=== PATIENT | female | born 1935 | race Hispanic/Latino ===

== ENCOUNTER 2019-06-09 07:35 | Observation (INO) | payer OTHER ==
[2019-06-09] MEDS ORDERED: ONDANSETRON 4 MG/2 ML VIAL ONE (07:55)
[2019-06-09] MEDS ORDERED: NA CHLORIDE 0.9% 1,000 ML ONE (07:55)
[2019-06-09] MEDS ORDERED: MORPHINE 4 MG/ML SYR ONE ×2 (07:55→09:02)
[2019-06-09 08:21] LABS: Absolute Lymphocytes (CBC) 1.3 K/uL (0.7-4.9); Basophils % 0.4 % (0-1.3); Hematocrit 37.7 % (36.0-45.0); Lymphocytes % 7.2 % (15.3-44.8); MPV 9.3 fL (7.6-11.3); Protime INR 1.07; RBC Red Blood Cell Count 4.49 M/uL (3.86-4.86)
--- NOTE | 2019-06-09 08:29 | RAD REPORT ---
EXAM DESCRIPTION: CT - CTHCSPWOC - 06/09/2019 8:17 am CLINICAL HISTORY: Trauma, head and neck injury. PAIN COMPARISON: Head C Spine Mpr Wo Con dated 05/03/2016 TECHNIQUE: Axial 5 mm thick images of the head were obtained. Axial 2 mm thick images of the cervical spine were obtained with sagittal and coronal reconstruction images generated and reviewed. All CT scans are performed using dose optimization technique as appropriate and may include automated exposure control or mA/KV adjustment according to patient size. FINDINGS: CT HEAD WITHOUT CONTRAST: No acute hemorrhage, hydrocephalus or extra-axial collection is identified.Advanced generalized brain atrophy is present with moderate periventricular and deep white matter chronic microvascular ischemi c changes.No areas of brain edema or midline shift. Vertebral artery on the left is calcified. The paranasal sinuses and mastoids are clear.The calvarium is intact. CT CERVICAL SPINE WITHOUT CONTRAST: No fracture or subluxation. 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 Moderate midcer vical degenerative changes with prominent posterior osteophyte at C4-5No prevertebral soft tissues sw elling is identified. IMPRESSION: No acute intracranial or cervical spine findings.
[2019-06-09 08:35] LABS: ALT/SGPT 16 U/L (12-78); AST/SGOT 13 U/L (15-37); Albumin 3.9 g/dL (3.4-5.0); Alkaline Phosphatase 85 U/L (45-117); BUN Blood Urea Nitrogen 5 mg/dL (7-18); Bicarbonate 30 mmol/L (21-32); Bilirubin Direct 0.3 mg/dL (0-0.2); Bilirubin Total 0.7 mg/dL (0.2-1.0); Glucose Level 141 mg/dL (74-106); Magnesium 1.6 mg/dL (1.8-2.4); NT PRO-BNP 345 pg/mL (<450); Potassium 3.8 mmol/L (3.5-5.1); Protein, Total 7.6 g/dL (6.4-8.2); Sodium Level 133 mmol/L (136-145); Troponin (Emerg Dept Use Only) 0.02 ng/mL (0.0-0.045)
--- NOTE | 2019-06-09 09:10 | RAD REPORT ---
EXAM DESCRIPTION: RAD - Chest Single View - 06/09/2019 8:28 am CLINICAL HISTORY: BLUNT CHEST TRAUMA Chest pain. COMPARISON: Chest Single View dated 12/25/2015 FINDINGS: Portable technique limits examination quality. The lungs are grossly clear. The heart is mildly enlarged in size. Fracture the proximal right dana l neck is seen. IMPRESSION: No acute intrathoracic process suspected.
--- NOTE | 2019-06-09 09:11 | RAD REPORT ---
EXAM DESCRIPTION: RAD - Humerus Right - 06/09/2019 8:30 am CLINICAL HISTORY: PAIN Trauma, pain COMPARISON: No comparisons FINDINGS: Fracture involves the proximal right humerus with mild displacement. No dislocation eviden t.
[2019-06-09 09:16] LABS: Blood Morphology Comment NOT SEEN (NOT SEEN); Platelet Estimate ADEQ; Urine White Blood Cell Casts OK
--- NOTE | 2019-06-09 10:07 | ER ---
Nurse's Notes [facility] Name: Shankar Sandoval Age: 83 yrs Sex: Female : 1935 Arrival Date: 06/09/2019 Time: 07:46 Bed 4 Private MD: Diagnosis: 2-part displaced fracture of surgical neck of right humerus;Syncope and collapse;Tachycardia, unspecified Presentation: 06/09 07:47 Presenting complaint: EMS states: Pt fell about 0100 this morning, c/o right shoulder jl7 pain, pt did hit her head, denies LOC, does not take blood thinners, bruising noted to right upper arm and bridge of nose. Care prior to arrival: None. Mechanism of Injury: Fall. Trauma event details: Injury occurred in the [facility]. 07:47 Acuity: [place] 3 jl7 07:47 Method Of Arrival: EMS: [facility] 7 08:00 Transition of care: patient was received from another setting of care (long-term care [facility]), [place]. Onset of symptoms was June 09, 2019 at 01:00. Risk Assessment: Do you want to hurt yourself or someone else? Patient reports no desire to harm self or others. Initial Sepsis Screen: Does the patient meet any 2 criteria? HR > 90 bpm. Does the patient have a suspected source of infection? No. Patient's initial sepsis screen is negative. Trauma Activation: Not Applicable Physician: ED Physician; Name: ; Notified At: ; Arrived At: Physician: General Surgeon; Name: ; Notified At: ; Arrived At: Physician: Radiology; Name: ; Notified At: ; Arrived At: Physician: Respiratory; Name: ; Notified At: ; Arrived At: Physician: Lab; Name: ; Notified At: ; Arrived At: Historical: - Allergies: 07:52 No Known Allergies; jl7 - Home Meds: 12:51 buspirone 10 mg Oral tab 2 tabs 3 times per day [Active]; duloxetine 30 mg oral cpDR 1 jl7 cap once daily [Active]; Depakote Sprinkles 125 mg Oral cpSP 2 caps 2 times per day [Active]; Levemir 100 unit/mL subcutaneous soln 18 units in the morning [Active]; levothyroxine 50 mcg oral tab 1 tab once daily [Active]; Lipitor 20 mg Oral tab 1 tab once daily [Active]; lisinopril 10 mg Oral tab 1 tab once daily [Active]; metformin 500 mg Oral Tb24 1 tab once daily [Active]; Namenda 10 mg oral tab 1 tab 2 times per day [Active]; Novolog 100 unit/mL Sub-Q soln twice a day [Active]; omeprazole 20 mg Oral cpDR 1 cap once daily [Active]; pioglitazone 15 mg oral tab 1 tab once daily [Active]; trazodone 50 mg Oral tab [Active]; Zyrtec 10 mg Oral tab 1 tab once daily [Active]; - PMHx: 12:51 allergies; Alzheimers; Anxiety; Diabetes - IDDM; Hypertension; Hypothyroidism; jl7 osteoarthritis; Anemia; Hyperlipidemia; Depression; insomnia; GERD; - Immunization history: Last tetanus immunization: unknown. - Social history:: Patient/guardian denies using alcohol, street drugs, The patient lives with family, Smoking status: unknown. - Family history:: not pertinent. - Ebola Screening: : No symptoms or risks identified at this time. Screenin:00 Abuse screen: Denies threats or abuse. Denies injuries from another. Nutritional jl7 screening: No deficits noted. Tuberculosis screening: No symptoms or risk factors identified. Fall Risk Fall in past 12 months (25 points). Secondary diagnosis (15 points) Alzheimer's, IV access (20 points). Ambulatory Aid- None/Bed Rest/Nurse Assist (0 pts). Gait- Weak (10 pts.). Mental Status- Overestimates/Forgets Limitations (15 pts.). Total Reina Fall Scale indicates High Risk Score (45 or more points). Fall prevention measures have been instituted. Side Rails Up X 2 Placed Close to Nursing Station Frequent Obs/Assessments Occuring As available patient and family educated on Fall Prevention Program and Strategies. Assessment: 08:00 General: Appears in no apparent distress. uncomfortable, Behavior is calm, cooperative, jl7 crying. Pain: Complains of pain in right arm Unable to use pain scale. Does not appear to understand pain scale. FLACC scale score is 9 out of 10. Neuro: Level of Consciousness is awake, alert, obeys commands. Cardiovascular: Heart tones present Patient's skin is warm and dry. Respiratory: Airway is patent Respiratory effort is even, unlabored, Respiratory pattern is regular, symmetrical, Breath sounds are clear bilaterally. GI: No signs and/or symptoms were reported involving the gastrointestinal system. : No signs and/or symptoms were reported regarding the genitourinary system. EENT: No signs and/or symptoms were reported regarding the EENT system. Derm: Skin is pink, warm \\T\\ dry. Musculoskeletal: Range of motion: limited in right shoulder. Injury Description: Bruise sustained to bridge of nose, left eye, right bicep and right knee is purple, was sustained 4-6 hours ago. 09:30 Reassessment: Pt refused medication at this time. Reports her arms doesn't hurt that jl7 bad right now. 10:15 Reassessment: Pt appears agitated, removed sling, potline monitor, pulse ox, and BP jl7 cuff, States "I want to go home." Explained to pt that we need to monitor her due to her HR and not knowing how or why she fell. Pt does not understand and continually attempting to get out of bed and leave. ERD notified, see [facility] for orders. 11:00 Reassessment: Patient appears in no apparent distress at this time. Pt laying in bed jl7 with eyes closed, respirations even and unlabored, VSS, no signs of distress noted at this time. 12:00 Reassessment: Patient appears in no apparent distress at this time. No changes from jl7 previously documented assessment. 13:00 Reassessment: Dr. Corrales at bedside discussing plan of care. jl7 13:15 Reassessment: Pt's niece at bedside, pt agrees to having the sling on at this time. jl7 Sling replaced on right arm at this time. 14:15 Reassessment: Patient appears in no apparent distress at this time. No changes from jl7 previously documented assessment. Patient and/or family updated on plan of care and expected duration. Pain level reassessed. 14:40 Reassessment: Attempted to call report, Nurse unavailable. jl7 15:04 Reassessment: Attempted to call report, nurse unavailable. jl7 Vital Signs: 07:50 BP 112 / 99; Pulse 110; Resp 16 S; Temp 98.8(O); Pulse Ox 100% on R/A; Pain 10/10; jl7 08:30 BP 138 / 83; Pulse 109; Resp 14 S; Pulse Ox 100% on R/A; jl7 09:15 BP 158 / 77; Pulse 102; Resp 16; Pulse Ox 100% on R/A; jl7 13:47 BP 156 / 80; Pulse 111; Resp 15 S; Pulse Ox 100% on R/A; jl7 14:43 BP 143 / 80; Pulse 115; Resp 16 S; Pulse Ox 100% on R/A; jl7 ED Course: 07:46 Patient arrived in ED. jl7 07:46 Noemí Graham MD is Attending Physician. ma2 07:50 Triage completed. jl7 07:58 Radiology exam delayed due to IV insertion attempt and/or patient not having jg6 appropriate IV at this time. 08:00 Patient has correct armband on for positive identification. Placed in gown. Bed in low jl7 position. Call light in reach. Side rails up X 1. threat monitoring analyst on. Pulse ox on. NIBP on. Warm blanket given. 08:00 Arm band placed on right wrist. jl7 08:09 Lb Ferrell RN is Primary Nurse. jl7 08:10 Patient maintains SpO2 saturation greater than 95% on room air. Thermoregulation: warm jl7 blanket given to patient. 08:11 Initial lab(s) drawn, by nd, sent to lab. Inserted saline lock: 22 gauge in left jl7 antecubital area, using aseptic technique. Blood collected. 08:19 CT Head C Spine In Process Unspecified. EDMS 08:27 Chest Single View XRAY In Process Unspecified. EDMS 08:27 Humerus Right XRAY In Process Unspecified. EDMS 08:30 Straight cath inserted, using sterile technique, 16 Fr. Specimen obtained. Returned jl7 clear yellow urine. Patient tolerated well. Cath inserted by ISATU Medina with students. 08:30 Urine collected: straight cath specimen, clear, EKG done, by ED staff, reviewed by jl7 Noemí Graham MD. 10:05 Connor Powers is Hospitalizing Provider. ma2 12:52 No provider procedures requiring assistance completed. Patient admitted, IV remains in jl7 place. intact, No redness/swelling at site. Administered Medications: 08:05 Drug: Zofran 4 mg Route: IVP; Site: left antecubital; jl7 08:30 Follow up: Response: No adverse reaction jl7 08:05 Drug: NS 0.9% 1000 ml Route: IV; Rate: 1 bolus; Site: left antecubital; jl7 10:13 Follow up: Response: No adverse reaction; IV Status: Completed infusion; IV Intake: jl7 1000ml 08:07 Drug: morphine 4 mg Route: IVP; Site: left antecubital; jl7 08:30 Follow up: Response: No adverse reaction; Pain is decreased jl7 10:13 Not Given (Duplicate Order): morphine 4 mg IVP once; RASS on ADMIN: Combtv4, Very jl7 Agttd3, Agttd2, Rstlss1, AlertClm0, Drwsy-1, Lt Sdtn-2, Mod Sdtn-3, Dp Sdtn-4, UnArsble-5 10:13 Not Given (Patient Refused): morphine 4 mg IVP once; RASS on ADMIN: Combtv4, Very jl7 Agttd3, Agttd2, Rstlss1, AlertClm0, Drwsy-1, Lt Sdtn-2, Mod Sdtn-3, Dp Sdtn-4, UnArsble-5 10:20 Drug: Ativan 1 mg Route: IVP; Site: left antecubital; jl7 10:25 Follow up: Response: No adverse reaction; Marked relief of symptoms jl7 14:52 CANCELLED (New order): Ativan 2 mg IVP once jl7 Intake: 10:13 IV: 1000ml; Total: 1000ml. jl7 Outcome: 10:07 Decision to Hospitalize by Provider. braulio 15:17 Admitted to Med/surg accompanied by tech, via stretcher, room 203, with chart, Report jl7 called to ISATU Gill 15:17 Condition: stable 15:17 Discharge instructions given to patient, family, Instructed on the need for admit, Demonstrated understanding of instructions. 16:02 Patient left the ED. Signatures: Dispatcher [employer] EDMS Yoselin Hernandez RN RN ss Leal, Jahala, RN RN [email or web address] Noemí Graham MD MD ma2 Garcia, Jessica jg6 Corrections: (The following items were deleted from the chart) 14:42 13:15 Reassessment: Pt's niece at bedside, agrees to having the sling on at this time. jl7 jl7 14:45 10:31 Ativan 2 mg IVP in left antecubital jl7 jl7 14:52 11:00 Response: No adverse reaction; Marked relief of symptoms jl7 jl7 14:52 10:31 Ativan 2 mg IVP in left antecubital jl7 jl7
--- NOTE | 2019-06-09 10:07 | EDPHYS ---
Physician Documentation [facility] Name: Shankar Sandoval Age: 83 yrs Sex: Female : 1935 Arrival Date: 06/09/2019 Time: 07:46 Bed 4 Private MD: ED Physician Noemí Graham HPI: 06/09 09:04 This 83 yrs old Female presents to ER via EMS with complaints of Shoulder ma2 Injury. 09:04 The patient or guardian complains of a crush injury, decreased range of motion. Onset: ma2 The symptoms/episode began/occurred suddenly, 1 hour(s) ago. 09:05 Severity of symptoms: At their worst the symptoms were severe, in the emergency ma2 department the symptoms are unchanged. The patient has not experienced similar symptoms in the past. Historical: - Allergies: 07:52 No Known Allergies; jl7 - Home Meds: 12:51 buspirone 10 mg Oral tab 2 tabs 3 times per day [Active]; duloxetine 30 mg oral cpDR 1 jl7 cap once daily [Active]; Depakote Sprinkles 125 mg Oral cpSP 2 caps 2 times per day [Active]; Levemir 100 unit/mL subcutaneous soln 18 units in the morning [Active]; levothyroxine 50 mcg oral tab 1 tab once daily [Active]; Lipitor 20 mg Oral tab 1 tab once daily [Active]; lisinopril 10 mg Oral tab 1 tab once daily [Active]; metformin 500 mg Oral Tb24 1 tab once daily [Active]; Namenda 10 mg oral tab 1 tab 2 times per day [Active]; Novolog 100 unit/mL Sub-Q soln twice a day [Active]; omeprazole 20 mg Oral cpDR 1 cap once daily [Active]; pioglitazone 15 mg oral tab 1 tab once daily [Active]; trazodone 50 mg Oral tab [Active]; Zyrtec 10 mg Oral tab 1 tab once daily [Active]; - PMHx: 12:51 allergies; Alzheimers; Anxiety; Diabetes - IDDM; Hypertension; Hypothyroidism; jl7 osteoarthritis; Anemia; Hyperlipidemia; Depression; insomnia; GERD; - Immunization history: Last tetanus immunization: unknown. - Social history:: Patient/guardian denies using alcohol, street drugs, The patient lives with family, Smoking status: unknown. - Family history:: not pertinent. - Ebola Screening: : No symptoms or risks identified at this time. ROS: 09:05 Constitutional: Negative for fever, chills, and weight loss. ma2 09:05 All other systems are negative. Exam: 09:05 Constitutional: This is a well developed, well nourished patient who is awake, alert, ma2 and in no acute distress. 09:05 ENT: Nares patent. No nasal discharge, no septal abnormalities noted. Tympanic membranes are normal and external auditory canals are clear. Oropharynx with no redness, swelling, or masses, exudates, or evidence of obstruction, uvula midline. Mucous membranes moist. Neck: Trachea midline, no thyromegaly or masses palpated, and no cervical lymphadenopathy. Supple, full range of motion without nuchal rigidity, or vertebral point tenderness. No Meningismus. Chest/axilla: Normal chest wall appearance and motion. Nontender with no deformity. No lesions are appreciated. Cardiovascular: Regular rate and rhythm with a normal S1 and S2. No gallops, murmurs, or rubs. Normal PMI, no JVD. No pulse deficits. Respiratory: Lungs have equal breath sounds bilaterally, clear to auscultation and percussion. No rales, rhonchi or wheezes noted. No increased work of breathing, no retractions or nasal flaring. Abdomen/GI: Soft, non-tender, with normal bowel sounds. No distension or tympany. No guarding or rebound. No evidence of tenderness throughout. Skin: Warm, dry with normal turgor. Normal color with no rashes, no lesions, and no evidence of cellulitis. MS/ Extremity: + ttp and limited rom on right shoulder, no dislocation on exam, otherwise Pulses equal, no cyanosis. Neurovascular intact. Full, normal range of motion. Neuro: Awake and alert, GCS 15, oriented to person, place, time, and situation. Cranial nerves II-XII grossly intact. Motor strength 5/5 in all extremities. Sensory grossly intact. Cerebellar exam normal. Normal gait. 09:05 Head/face: Exam is negative for quinonez signs, erythema, laceration(s), swelling, Noted is contusion. Vital Signs: 07:50 BP 112 / 99; Pulse 110; Resp 16 S; Temp 98.8(O); Pulse Ox 100% on R/A; Pain 10/10; jl7 08:30 BP 138 / 83; Pulse 109; Resp 14 S; Pulse Ox 100% on R/A; jl7 09:15 BP 158 / 77; Pulse 102; Resp 16; Pulse Ox 100% on R/A; jl7 13:47 BP 156 / 80; Pulse 111; Resp 15 S; Pulse Ox 100% on R/A; jl7 14:43 BP 143 / 80; Pulse 115; Resp 16 S; Pulse Ox 100% on R/A; jl7 Procedures: 09:05 Splinting: Splint applied to right arm using sling, swath and sling. applied by myself. ma2 post reduction film - Examined by me, post splint application: neurovascular intact, 2+ distal pulses palpable, brisk capillary refill noted, Patient tolerated well. MDM: 07:46 Patient medically screened. ma2 09:05 Differential diagnosis: Posterior dislocation without fracture, humeral head fracture, ma2 glenoid fracture, DJD, tendonitis. Data reviewed: vital signs, nurses notes. Counseling: I had a detailed discussion with the patient and/or guardian regarding: the historical points, exam findings, and any diagnostic results supporting the discharge/admit diagnosis, the presence of at least one elevated blood pressure reading (>120/80) during this emergency department visit, the need for further work-up and treatment in the hospital, will admit d/t intractable pain in the setting of closed humeral head frx, neurovascular intact.. i called dr. Corrales office and discussed the case to his outpatient physical therapist assistant.. he will see her as an inpatient.. . Medical screen evaluation completed. EMTALA emergency medical condition absent. 06/09 07:49 Order name: Basic Metabolic Panel; Complete Time: 08:40 ga2 06/09 07:49 Order name: CBC with Diff; Complete Time: 10:01 ga2 06/09 07:49 Order name: LFT's; Complete Time: 08:40 ga2 06/09 07:49 Order name: Magnesium; Complete Time: 08:40 ga2 06/09 07:49 Order name: NT PRO-BNP; Complete Time: 08:40 ga2 06/09 07:49 Order name: PT-INR; Complete Time: 08:40 ga2 06/09 07:49 Order name: CT Head C Spine; Complete Time: 08:40 ma2 06/09 07:49 Order name: Chest Single View XRAY; Complete Time: 09:16 ma2 06/09 07:49 Order name: Humerus Right XRAY; Complete Time: 09:16 ma2 06/09 07:49 Order name: Troponin (emerg Dept Use Only); Complete Time: 08:40 ma2 06/09 09:16 Order name: CBC Smear Scan; Complete Time: 10:01 EDMS 06/09 09:26 Order name: Urine Dipstick--Ancillary (enter results) bd 06/09 07:49 Order name: EKG; Complete Time: 07:50 ma2 06/09 07:49 Order name: EKG - Nurse/Tech; Complete Time: 08:53 ma2 06/09 07:49 Order name: IV Saline Lock; Complete Time: 08:10 ma2 06/09 07:49 Order name: Labs collected and sent; Complete Time: 08:10 ma2 06/09 07:49 Order name: O2 Per Protocol; Complete Time: 08:09 ma2 06/09 07:49 Order name: O2 Sat Monitoring; Complete Time: 08:09 ma2 06/09 07:49 Order name: Urine Dipstick-Ancillary (obtain specimen); Complete Time: 08:54 ma2 06/09 08:46 Order name: Sling: sling + swath; Complete Time: 10:13 ma2 Administered Medications: 08:05 Drug: Zofran 4 mg Route: IVP; Site: left antecubital; jl7 08:30 Follow up: Response: No adverse reaction 7 08:05 Drug: NS 0.9% 1000 ml Route: IV; Rate: 1 bolus; Site: left antecubital; jl7 10:13 Follow up: Response: No adverse reaction; IV Status: Completed infusion; IV Intake: jl7 1000ml 08:07 Drug: morphine 4 mg Route: IVP; Site: left antecubital; jl7 08:30 Follow up: Response: No adverse reaction; Pain is decreased jl7 10:13 Not Given (Duplicate Order): morphine 4 mg IVP once; RASS on ADMIN: Combtv4, Very jl7 Agttd3, Agttd2, Rstlss1, AlertClm0, Drwsy-1, Lt Sdtn-2, Mod Sdtn-3, Dp Sdtn-4, UnArsble-5 10:13 Not Given (Patient Refused): morphine 4 mg IVP once; RASS on ADMIN: Combtv4, Very jl7 Agttd3, Agttd2, Rstlss1, AlertClm0, Drwsy-1, Lt Sdtn-2, Mod Sdtn-3, Dp Sdtn-4, UnArsble-5 10:20 Drug: Ativan 1 mg Route: IVP; Site: left antecubital; 7 10:25 Follow up: Response: No adverse reaction; Marked relief of symptoms jl7 14:52 CANCELLED (New order): Ativan 2 mg IVP once jl7 Disposition: 06/09/19 10:07 Hospitalization ordered by Connor Powers for Observation. Preliminary diagnosis are 2-part displaced fracture of surgical neck of right humerus, Syncope and collapse, Tachycardia, unspecified. - Bed requested for Telemetry/MedSurg (observation). - Status is Observation. ss - Condition is Stable. - Problem is new. - Symptoms are unchanged. UTI on Admission? No Signatures: Dispatcher [employer] EDMS Nayeli Alberto RN RN Yoselin Altamirano RN RN ss Leal, Jahala, RN RN jl7 Alzahri, Mohammad, MD MD ma2 Corrections: (The following items were deleted from the chart) 13:19 10:07 Hospitalization Ordered by Connor Powers for Observation. Preliminary diagnosis ma2 is 2-part displaced fracture of surgical neck of right humerus. Bed requested for Telemetry/MedSurg (observation). Status is Observation. Condition is Stable. Problem is new. Symptoms are unchanged. UTI on Admission? No. ma2 14:37 13:19 06/09/2019 10:07 Hospitalization Ordered by Connor Powers for Observation. dw Preliminary diagnosis is 2-part displaced fracture of surgical neck of right humerus; Syncope and collapse; Tachycardia, unspecified. Bed requested for Telemetry/MedSurg (observation). Status is Observation. Condition is Stable. Problem is new. Symptoms are unchanged. UTI on Admission? No. ma2 14:52 10:21 Ativan 2 mg IVP once ordered. ma2 jl7 14:52 10:31 Ativan 2 mg IVP once given. jl7 jl7 14:52 14:45 Ativan 2 mg IVP once given. jl7 jl7 14:52 14:52 Ativan 2 mg IVP once ordered. jl7 jl7 16:02 14:37 06/09/2019 10:07 Hospitalization Ordered by Connor Powers for Observation. ss Preliminary diagnosis is 2-part displaced fracture of surgical neck of right humerus; Syncope and collapse; Tachycardia, unspecified. Bed requested for Telemetry/MedSurg (observation). Status is Observation. Condition is Stable. Problem is new. Symptoms are unchanged. UTI on Admission? No. dw
[2019-06-09] MEDS ORDERED: LORazepam 2 MG/ML VIAL ONE (10:23)
[2019-06-09 10:31] LABS: Urine Blood NEGATIVE (NEG); Urine Glucose NEGATIVE (NEG); Urine Protein NEGATIVE (NEG); Urine Specific Gravity 1.015 (1.005-1.030); Urine pH 8.5 (5.0-7.0)
--- NOTE | 2019-06-09 11:06 | EKG ---
Test Date: 2019-06-09 Test Time: 09:17:53 Product Safety Consultant: YVETTE MEASUREMENT RESULTS: Intervals: Rate: 98 MA: 178 QRSD: 68 QT: 370 QTc: 472 [place]: P: 41 MA: 178 QRS: 1 T: 9 INTERPRETIVE STATEMENTS: Normal sinus rhythm Normal ECG Compared to ECG 12/26/2015 07:00:07 No significant changes Electronically Signed On 06-09-19 11:05:50 CDT by Kin Pearce
--- NOTE | 2019-06-09 14:04 | P.HP ---
Certification for Inpatient Patient admitted to: Inpatient With expected LOS: >2 Midnights Patient will require the following post-hospital care: Longterm Practitioner: I am a practitioner with admitting privileges, knowledge of patient current condition, hospital course, and medical plan of care. Services: Services provided to patient in accordance with Admission requirements found in Title 42 Section 412.3 of the Code of Federal Regulations Patient History Date of Service: 06/09/19 Reason for admission: Fall History of Present Illness: 83-year-old pen[facility]iary resident who was [facility] the penitentiary to the emergency department because she fell. Mechanism of for unknown. Daughter by her bedside also does not know the mechanism of fall. Patient has dementia, appeared confused and could not provide any history. X-ray done in the ED report right humeral neck fracture. Also noted patient has leukocytosis and hyponatremia. Urinalysis does not suggest the presence of UTI. Orthopedic surgery informed and hospitalist service called to admit the patient for further management. Allergies No Known Allergies Allergy (Verified 12/25/15 09:19) Home medications list reviewed: Yes Home Medications: Dextromethorphan HBr/Quinidine [Nuedexta 20-10 mg Capsule] 1 tab PO BID Donepezil HCl 10 mg PO BID 12/25/15 LORazepam [Lorazepam] 0.5 mg PO BEDTIME 12/25/15 Levothyroxine Sodium [Unithroid] 25 mcg PO DAILY 12/25/15 Lisinopril 10 mg PO DAILY 12/25/15 Memantine HCl [Namenda Xr] 28 mg PO DAILY 12/25/15 Omeprazole 40 mg PO DAILY 12/25/15 Benzonatate [Tessalon Perle] 100 mg PO TID #20 cap 12/26/15 Cetirizine HCl [Zyrtec] 10 mg PO DAILYPRN PRN #30 tablet 12/26/15 - Past Medical/Surgical History -: alzheimers -: anxiety Past Surgical History: Unable to obtain - Family History Mother -: Diabetes - Social History Alcohol use: No CD- Drugs: No Caffeine use: Yes Review of Systems is unable to be obtained (Due to advanced dementia.) Physical Examination - Physical Exam General: In no apparent distress, Cooperative, Demented HEENT: Normocephalic, PERRLA, Mucous membr. moist/pink, Other Neck: Supple, JVD not distended, No Thyromegaly Respiratory: Clear to auscultation bilaterally, Normal air movement Cardiovascular: No edema, Normal pulses, Regular rate/rhythm, No murmurs Capillary refill: <2 Seconds Gastrointestinal: Normal bowel sounds, Soft and benign, Non-distended, No tenderness Musculoskeletal: No clubbing, No swelling, No erythema, Other (Bruise and sweling- right shoulder) Neurological: Cranial nerves 3-12 intact, Normal affect, Other (Power bilateral lower extremities and left upper extremity are normal. Cannot assess power in the right upper extremity.) Lymphatics: No axilla or inguinal lymphadenopathy - Studies Laboratory Data (last 24 hrs) 06/09/19 08:08: PT 12.6 H, INR 1.07 06/09/19 08:08: WBC 17.6 H, Hgb 12.9, Hct 37.7, Plt Count 247 06/09/19 08:08: Sodium 133 L, Potassium 3.8, BUN 5 L, Creatinine 0.59, Glucose 141 H, Magnesium 1.6 L, Total Bilirubin 0.7, AST 13 L, ALT 16, Alkaline Phosphatase 85 Imagings Data: Right humeral x-ray: Fracture involves the proximal right humerus with mild displacement. No dislocation evident. CT head and cervical spine: No acute intracranial or cervical spine findings. Assessment and Plan - Problems (Diagnosis) (1) Fall Current Visit: Yes Status: Acute (2) Humeral fracture Current Visit: Yes Status: Acute (3) Leukocytosis Current Visit: Yes Status: Acute (4) Hyponatremia Current Visit: Yes Status: Acute - Plan Admit to [facility] IV hydration normal saline to correct hyponatremia. Leukocytosis could be reactive to stress. Urine culture Orthopedic consult Pain management. PT and OT Discharge Plan: Senior Living - Advance Directives Does patient have a Living Will: No Does patient have a Durable POA for Healthcare: No
[2019-06-09] MEDS ORDERED: MAGNESIUM HYDROXIDE 8% 30 ML PO PRN (16:32)
[2019-06-09] MEDS ORDERED: ONDANSETRON 4 MG/2 ML VIAL IV PRN (16:32)
[2019-06-09] MEDS: NA CHLORIDE 0.9% 1,000 ML IV SCH (16:56)
[2019-06-09 17:03] VITALS: BMI 4218.0
[2019-06-09] MEDS ORDERED: GLUCAGON 1 MG/VIAL IM PRN (17:19)
[2019-06-09] MEDS ORDERED: D50W 25 GM/50 ML SYRINGE IV PRN (17:19)
[2019-06-09] MEDS ORDERED: POTASSIUM 25 MEQ EFFERV TAB PO ONE (17:41)
[2019-06-09] MEDS ORDERED: MAGNESIUM SULFATE 1 gm IVPB 1 GM/100 ML BAG IV ONE (18:00)
[2019-06-09 18:01] LABS: Urine Appearance CLEAR; Urine Bilirubin NEGATIVE (NEG); Urine Blood NEGATIVE (NEG); Urine Color YELLOW; Urine Glucose NEGATIVE (NEG); Urine Protein NEGATIVE (NEG); Urine Urobilinogen 0.2 mg/dL (0.2-1.0); Urine pH 6.5 (5.0-7.0)
[2019-06-09 18:10] LABS: Urine Microscopic Reflex ORDER UMIC
[2019-06-09 18:15] LABS: Urine Amorphous Sediment 1+ /HPF (NONE SEEN); Urine Bacteria 20-50 /HPF (<20); Urine Culture Reflex Order REFLEXED; Urine RBC <5 /HPF (NONE SEEN)
[2019-06-09 18:20] LABS: Protime INR 1.1
[2019-06-09] MEDS: HEPARIN 5000 UNIT/ML 1 ML VIAL SQ SCH (20:51)
[2019-06-09] MEDS: INSULIN -REGULAR HUMAN 50 UNIT/0.5 ML ML SQ SCH (21:00)
[2019-06-10] MEDS: ACETAMINOPHEN 500 MG TAB PO PRN ×2 (02:30→10:15)
[2019-06-10] MEDS: MORPHINE 2 MG/ML SYR IV PRN ×2 (02:48→13:19)
--- NOTE | 2019-06-10 03:46 | CON ---
Date of Consultation: 06/09/2019 This is my first time I am seeing this patient to my knowledge. She apparently fell early this brandie lucas, sustained an injury to her right upper extremity. She has been seen and examined in the emergenc y department where she was found to have some bruising on the face, also with complaints of pain in h er right arm. X-rays were taken of the right arm, which demonstrate a slightly comminuted proximal h umerus fracture without significant displacement. All of her long bones and joints are palpated with out pain or crepitation with the exception of her right shoulder, which appears to be swollen and arnol nful to medial manipulation. Assessment: Patient is an 83-year-old female with dementia now with proximal humerus fracture who ba sically cannot give any history or has no specific complaints other than pain with palpation. Her fa estuardo was there and states that she is not even aware that she fell. We will treat this in a simple sling. The sling is to be used for 3 weeks to help with pain control. Otherwise, pain alleviating medications can be used as deemed reasonable or necessary. Really woul d not change her status or recommendations until 3 weeks, at which time could institute common exerci ses if she was able to do this, otherwise I expect that her humerus fracture will heal in 6 weeks. S he will have some decreased function related to her right upper extremity, but this would not be impr eliud by any invasive intervention. /SEGUNDO Voice ID: [id number] Report ID: [id number]
[2019-06-10] MEDS: NA CHLORIDE 0.9% 1,000 ML IV SCH ×2 (04:22→12:32)
[2019-06-10 05:54] LABS: Absolute Lymphocytes (CBC) 1.6 K/uL (0.7-4.9); Basophils % 0.2 % (0-1.3); Hematocrit 31.7 % (36.0-45.0); MPV 9.5 fL (7.6-11.3); RBC Red Blood Cell Count 3.73 M/uL (3.86-4.86)
[2019-06-10 06:09] LABS: BUN Blood Urea Nitrogen 5 mg/dL (7-18); Bicarbonate 33 mmol/L (21-32); Glucose Level 120 mg/dL (74-106); Potassium 4.2 mmol/L (3.5-5.1); Sodium Level 136 mmol/L (136-145)
[2019-06-10] MEDS: INSULIN -REGULAR HUMAN 50 UNIT/0.5 ML ML SQ SCH ×2 (07:30→11:30)
[2019-06-10] MEDS: HEPARIN 5000 UNIT/ML 1 ML VIAL SQ SCH (10:11)
[2019-06-10 10:19] VITALS: O2SAT 98
--- NOTE | 2019-06-10 12:24 | P.DS ---
Admission Date: 06/09/19 Discharge Date: 06/10/19 Disposition: TRANSFER TO SNF Discharge Condition: GOOD Reason for Admission: Fall Consultations: Orthopedics-Dr. Corrales Procedures: None. - Problems (1) Fall Current Visit: Yes Status: Acute Qualifiers: Encounter type: initial encounter Qualified Code(s): W19.XXXA - Unspecified fall, initial encounter (2) Humeral fracture Current Visit: Yes Status: Acute (3) Leukocytosis Current Visit: Yes Status: Acute (4) Hyponatremia Current Visit: Yes Status: Acute Brief History of Present Illness: 83-year-old halfway resident who was transferred from the halfway to the emergency department because she fell. Mechanism of fall unknown. Daughter by her bedside also does not know the mechanism of fall. Patient has dementia, appeared confused and could not provide any history. X-ray done in the ED reported right humeral neck fracture. Also noted patient has leukocytosis and hyponatremia. Urinalysis did not suggest the presence of UTI. Orthopedic surgery informed and hospitalist service called to admit the patient for further management. Hospital Course: Patient admitted to the medical floor. She was seen by orthopedic surgery who recommended conservative management. Her right upper extremity was put in a sling. Patient is supposed to wear the sling for 3 weeks and follow with Dr. Corrales. She had leukocytosis which was deemed secondary to stress. This resolved. She also had hyponatremia which resolved with IV hydration. The patient is deemed clinically stable for discharge. Vital Signs/Physical Exam: Temp Pulse Resp BP Pulse Ox 97.8 F 77 18 186/79 H 100 06/10/19 08:00 06/10/19 08:00 06/10/19 08:00 06/10/19 08:00 06/10/19 08:00 General: Alert, Oriented x2 HEENT: Mucous membr. moist/pink Neck: Supple, JVD not distended Respiratory: Clear to auscultation bilaterally, Normal air movement Cardiovascular: No edema, Regular rate/rhythm, Normal S1 S2 Gastrointestinal: Normal bowel sounds, Soft and benign Musculoskeletal: Other (Right upper extremity in a sling.) Integumentary: No rashes, Other (Small bruise on the left zygomatic area.) Neurological: Normal strength at 5/5 x4 extr, Cranial nerves 3-12 intact Laboratory Data at Discharge: WBC 8.3 K/uL (4.3-10.9) D 06/10/19 05:10 Hgb 11.1 g/dL (12.0-15.0) L 06/10/19 05:10 Hct 31.7 % (36.0-45.0) L D 06/10/19 05:10 Plt Count 202 K/uL (152-406) 06/10/19 05:10 PT 12.9 SECONDS (9.5-12.5) H 06/09/19 17:08 INR 1.10 06/09/19 17:08 Sodium 136 mmol/L (136-145) 06/10/19 05:10 Potassium 4.2 mmol/L (3.5-5.1) 06/10/19 05:10 BUN 5 mg/dL (7-18) L 06/10/19 05:10 Creatinine 0.44 mg/dL (0.55-1.3) L 06/10/19 05:10 Glucose 120 mg/dL (74-106) H 06/10/19 05:10 Magnesium 1.6 mg/dL (1.8-2.4) L 06/09/19 08:08 Total Bilirubin 0.7 mg/dL (0.2-1.0) 06/09/19 08:08 AST 13 U/L (15-37) L 06/09/19 08:08 ALT 16 U/L (12-78) 06/09/19 08:08 Alkaline Phosphatase 85 U/L (45-117) 06/09/19 08:08 Home Medications: RX: Atorvastatin Calcium [Lipitor*] 20 mg PO BEDTIME 06/09/19 RX: Buspirone HCl [Buspar] 10 mg PO TID 06/09/19 RX: Divalproex Sodium [Depakote] 125 cap PO BID 06/09/19 RX: Donepezil [Aricept*] 10 mg PO BEDTIME 06/09/19 RX: Duloxetine [Cymbalta *] 30 mg PO DAILY 06/09/19 RX: Insulin Detemir [Levemir] 18 units SQ DAILY 06/09/19 RX: Levothyroxine [Synthroid*] 50 mcg PO DAILY 06/09/19 RX: Tramadol HCl [Ultram] 50 mg PO Q6H PRN 10 Days #30 tablet 06/10/19 New Medications: RX: Tramadol HCl [Ultram] 50 mg PO Q6H PRN 10 Days #30 tablet PRN Reason: Pain Scale 5-7 (Moderate) Diet: ADA Activity: Fall precautions Followup: Festus Corrales MD [ACTIVE - CAN ADMIT] - (Within 3 weeks)
[2019-06-10 15:01] VITALS: BP 175/72; TEMP 98.8
== END 2019-06-10 15:00 ==
LOC: ER 07:35 → ERHOLD 16:06 → INTOOBSV 16:06 → 2ND 16:23
PROVIDERS: ADMIT Internal Medicine; ATTEND Internal Medicine
DX: S42.201A Unspecified fracture of upper end of right humerus, initial encounter for closed fracture (principal); E87.1 Hypo-osmolality and hyponatremia; D72.829 Elevated white blood cell count, unspecified; G30.9 Alzheimer's disease, unspecified; F02.80 Dementia in other diseases classified elsewhere, unspecified severity, without behavioral disturbance, psychotic disturbance, mood disturbance, and anxiety; F41.9 Anxiety disorder, unspecified; W19.XXXA Unspecified fall, initial encounter
CPT/HCPCS: 96361; 93005; 87088; 85025 ×2; 87086; 80048 ×2; 36415; 83735; 85610 ×2; 82962 ×4; 80076; 87077 ×2; 87186 ×2; 84484; 83880; 70450; 72125; 71045; 73060; 97116 ×2; 97161; 94760 ×3; 51702; 96375; 96374; 99285; J1644 ×2; J3475; J2270 ×2; J7030 ×2; J2405; G0378 ×3; 81003; 81015

== ENCOUNTER 2022-03-21 12:51 | Inpatient (IN) | payer OTHER ==
[2022-03-21] MEDS ORDERED: NA CHLORIDE 0.9% 1,000 ML ONE (13:11)
[2022-03-21 13:27] LABS: Urine Blood Trace-lysed (Negative); Urine Glucose Negative (Negative); Urine Protein Negative (Negative); Urine pH 6.5 (5.0-7.0)
[2022-03-21 13:53] LABS: Hematocrit 41.2 % (36.0-45.0); Lymphocytes % 27.5 % (15.3-44.8); MCV 86.9 fL (80-100); MPV 10.1 fL (7.6-11.3); RBC Red Blood Cell Count 4.75 M/uL (3.86-4.86)
[2022-03-21 13:56] LABS: Protime INR 1.02
[2022-03-21 14:00] LABS: Urine Bacteria >50 /HPF (<20); Urine RBC <5 /HPF (NONE SEEN)
--- NOTE | 2022-03-21 14:19 | RAD REPORT ---
EXAM DESCRIPTION: RAD - Chest Single View - 03/21/2022 1:39 pm CLINICAL HISTORY: AMS, COVID COMPARISON: Portable 06/09/2019 TECHNIQUE: AP portable chest image was obtained 03/21/2022 1:39 pm . FINDINGS: A chronic interstitial lung pattern is present. No peripheral airspace opacification or ot her finding specific for a COVID-19 pneumonia. Interstitial pattern is not clearly different from 201 9. Baseline pattern could mask early edema or infiltrate. No hilar mass or lymphadenopathy identifiab le. Mediastinum is distorted slightly by rotation and supine positioning. Heart and vasculature are normal. No measurable pleural effusion and no pneumothorax. No acute bony abnormality seen. No acute aortic findings suspected. IMPRESSION: Chronic interstitial lung disease not clearly different from 2019. No specific chest film findings for a COVID-19 pneumonia.
[2022-03-21 14:20] LABS: Albumin 3.6 g/dL (3.4-5.0); Bilirubin Direct 0.1 mg/dL (0-0.2); Bilirubin Total 0.5 mg/dL (0.2-1.0); C-Reactive Protein 15.2 mg/L (<3.00); Protein, Total 7.4 g/dL (6.4-8.2)
[2022-03-21] MEDS ORDERED: CEFTRIAXONE 1000 MG/VIAL ONE (14:29)
[2022-03-21] MEDS ORDERED: NA CHLORIDE 0.9% 3,000 ML ONE (14:29)
[2022-03-21 14:55] LABS: Ferritin 24.1 ng/mL (8-388)
--- NOTE | 2022-03-21 15:21 | EDPHYS ---
Physician Documentation [facility] Name: Shankar Sandoval Age: 86 yrs Sex: Female : 1935 Arrival Date: 03/21/2022 Time: 12:52 Bed 15 Private MD: ED Physician Jose Carlos Olguin HPI: 03/21 14:20 This 86 yrs old Female presents to ER via EMS with complaints of Altered rn Mental Status, Weakness. 14:20 The patient presents with decreased responsiveness. Onset: The symptoms/episode rn began/occurred at an unknown time. Possible causes: unknown. Associated signs and symptoms: Pertinent positives: confusion, Pertinent negatives:. Current symptoms: In the emergency department the patient's symptoms are unchanged from the initial presentation. It is unknown whether or not the patient has had similar symptoms in the past. It is unknown whether or not the patient has recently seen a physician. Per EMS, patient COVID+, recent diagnosis, brought from [place] for AMS and decreased responsiveness. Patient responds to painful stimuli, but appears to be weak all over. No lateralizing signs per EMS. . Historical: - Allergies: 12:58 No Known Allergies; ld1 - PMHx: 12:58 Alzheimers; Hypertension; allergies; Diabetes - NIDDM; Hypothyroidism; osteoarthritis; ld1 GERD; Diabetes - IDDM; insomnia; Anxiety; Depression; Hyperlipidemia; Anemia; - PSHx: 12:58 None; ld1 - Immunization history:: Adult Immunizations up to date, Client reports having NOT received the Covid vaccine. - Social history:: Smoking status: Patient denies any tobacco usage or history of. Patient/guardian denies using alcohol. - History obtained from: EMS. - Unable to obtain history due to: altered mental status. ROS: 14:20 Unable to obtain ROS due to altered mental status. rn Exam: 14:20 Constitutional: This is a well developed, well nourished patient who is somnolent but rn easily awakens to voice and painful stimuli Head/Face: Normocephalic, atraumatic. Eyes: pupils 2mm, equal ENT: dry MM Cardiovascular: Regular rate and rhythm. No pulse deficits. Respiratory: No increased work of breathing, no retractions or nasal flaring. Abdomen/GI: Soft, non-tender Skin: Warm, dry MS/ Extremity: Pulses equal, no cyanosis. Neuro: Somnolent, awakens to voice and painful stimuli Vital Signs: 12:57 BP 154 / 80; Pulse 81; Resp 14; Temp 97.6(A); Pulse Ox 100% on R/A; Weight 95.25 kg; ld1 Height 5 ft. 3 in. (160.02 cm); 14:23 BP 102 / 83; Pulse 82; Temp 97.5(R); Pulse Ox 100% ; ld1 15:37 BP 153 / 95; Pulse 84; Resp 18; Pulse Ox 100% on R/A; ld1 18:40 BP 156 / 79; Pulse 97; Resp 18; Pulse Ox 100% on R/A; ld1 19:55 BP 146 / 114; Pulse 84; Resp 18; Pulse Ox 97% on R/A; ld1 12:57 Body Mass Index 37.20 (95.25 kg, 160.02 cm) ld1 MDM: 12:55 Patient medically screened. rn 15:19 Differential Diagnosis: CVA, electrolyte abnormality, intracranial bleed, pneumonia, rn sepsis, UTI, volume depletion. 15:20 Data reviewed: vital signs, nurses notes, lab test result(s), radiologic studies, plain rn films, and as a result, I will admit patient. Counseling: I had a detailed discussion with the patient and/or guardian regarding: the historical points, exam findings, and any diagnostic results supporting the discharge/admit diagnosis, lab results, radiology results, the need for further work-up and treatment in the hospital. Response to treatment: the patient's symptoms have mildly improved after treatment, and as a result, I will admit patient. Admission orders: after a detailed discussion of the patient's condition and case, the admit orders are written by me. Special discussion:. ED course: BP improved after fluids, lactate normal, + UTI, will admit. Pending ct head. COVID pending, but + per report.. 15:21 ED course: Sepsis reevaluation complete. rn 03/21 12:56 Order name: BMP; Complete Time: 15:18 rn 03/21 12:56 Order name: Blood Culture Adult (2) rn 03/21 12:56 Order name: C-Reactive Protein; Complete Time: 15:18 rn 03/21 12:56 Order name: CBC with Diff; Complete Time: 14:15 rn 03/21 12:56 Order name: Ferritin; Complete Time: 15:18 rn 03/21 12:56 Order name: LFT's; Complete Time: 15:18 rn 03/21 12:56 Order name: Lactate; Complete Time: 14:23 rn 03/21 12:56 Order name: Lipase; Complete Time: 15:18 rn 03/21 12:56 Order name: PT-INR; Complete Time: 14:15 rn 03/21 12:56 Order name: Procalcitonin; Complete Time: 15:18 rn 03/21 12:56 Order name: Ptt, Activated; Complete Time: 14:15 rn 03/21 12:56 Order name: Troponin HS; Complete Time: 15:18 rn 03/21 12:56 Order name: Urine Microscopic Only; Complete Time: 14:15 03/21 13:27 Order name: Urine Dipstick-Ancillary; Complete Time: 14:15 [facility] 03/21 12:56 Order name: CXR XRAY; Complete Time: 14:23 03/21 14:03 Order name: Urine Culture [facility] 03/21 14:57 Order name: SARS-COV-2 RT PCR (Document "Date of Onset" if Symptomatic); Complete Time: em1 17:18 03/21 16:28 Order name: Thyroid Stimulating Hormone [facility] 03/21 16:28 Order name: CBC with Automated Diff [facility] 03/21 16:28 Order name: CBC with Automated Diff [facility] 03/21 16:28 Order name: CBC with Automated Diff [facility] 03/21 16:28 Order name: Comprehensive Metabolic Panel [facility] 03/21 16:28 Order name: Comprehensive Metabolic Panel [facility] 03/21 16:28 Order name: Comprehensive Metabolic Panel [facility] 03/21 16:28 Order name: Comprehensive Metabolic Panel [facility] 03/21 16:28 Order name: Magnesium [facility] 03/21 16:28 Order name: Magnesium [facility] 03/21 16:28 Order name: Magnesium ED[facility] 03/21 16:28 Order name: Magnesium ED[facility] 03/21 18:08 Order name: Lactate Sepsis 2 HR Follow-up [facility] 03/21 12:56 Order name: EKG; Complete Time: 12:57 rn 03/21 12:56 Order name: Cardiac monitoring; Complete Time: 13:01 rn 03/21 12:56 Order name: Droplet/Contact Precautions; Complete Time: 13:01 rn 03/21 12:56 Order name: EKG - Nurse/Tech; Complete Time: 13:30 rn 03/21 12:56 Order name: Rosales; Complete Time: 13:20 rn 03/21 12:56 Order name: IV Start; Complete Time: 13:20 rn 03/21 12:56 Order name: Labs collected and sent; Complete Time: 13:30 rn 03/21 12:56 Order name: O2 Per Protocol; Complete Time: 13: rn 03/21 12:56 Order name: O2 Sat Monitoring; Complete Time: 13: rn 03/21 12:56 Order name: Urine Dipstick-Ancillary (obtain specimen); Complete Time: 13:30 rn 03/21 15:20 Order name: CT Head Brain wo Cont; Complete Time: 16:08 rn 03/21 16:28 Order name: 60g Consistent Carbohydrate (ADA 1800/2000) EDMS Administered Medications: 13:36 Drug: NS 0.9% 1000 ml Route: IV; Rate: 1000 ml; Site: right antecubital; ld1 14:26 Drug: NS 0.9% (30 ml/kg) 30 ml/kg Route: IV; Rate: bolus; Site: right jugular; ld1 14:26 Drug: Rocephin (cefTRIAXone) 1 grams Route: IV; Rate: calculated rate; Site: right ld1 jugular; Disposition Summary: 03/21/22 15:21 Hospitalization Ordered Hospitalization Status: Inpatient Admission rn Provider: Raz Nieto rn Location: Telemetry/MedSurg (Inpatient) rn Condition: Stable rn Problem: new rn Symptoms: have improved rn Bed/Room Type: Standard rn Room Assignment: 418(03/21/22 19:05) cg Diagnosis - Altered mental status, unspecified rn - UTI/ Urinary tract infection, site not specified rn - SARS-associated coronavirus as the cause of diseases classified elsewhere rn Forms: - Medication Reconciliation Form rn - SBAR form rn Signatures: Dispatcher [employer] EDJose Carlos Velásquez MD MD rn Garcia, Cindy, RN RN cg Dibbern, Lauren, RN RN ld1 Corrections: (The following items were deleted from the chart) 14:25 14:20 Constitutional: This is a well developed, well nourished patient who is somnolent rn but easily awakens to voice and painful stimuli Head/Face: Normocephalic, atraumatic. Eyes: pupils 2mm, equal Cardiovascular: Regular rate and rhythm. No pulse deficits. Respiratory: No increased work of breathing, no retractions or nasal flaring. Abdomen/GI: Soft, non-tender Skin: Warm, dry MS/ Extremity: Pulses equal, no cyanosis. Neuro: Somnolent, awakens to voice and painful stimuli rn 19:05 15:21 rn cg
--- NOTE | 2022-03-21 15:21 | ER ---
Nurse's Notes [facility] Name: Shankar Sandoval Age: 86 yrs Sex: Female : 1935 Arrival Date: 03/21/2022 Time: 12:52 Bed 15 Private MD: Diagnosis: Altered mental status, unspecified;UTI/ Urinary tract infection, site not specified;SARS-associated coronavirus as the cause of diseases classified elsewhere Presentation: 03/21 12:57 Chief complaint: EMS states: toned out to [facility] for COVID + pt - ld1 generalized weakness \T\ AMS. Coronavirus screen: Client presents with at least one sign or symptom that may indicate coronavirus-19. Standard/surgical mask placed on the client. Ebola Screen: No symptoms or risks identified at this time. Initial Sepsis Screen: Does the patient meet any 2 criteria? No. Patient's initial sepsis screen is negative. Does the patient have a suspected source of infection? No. Patient's initial sepsis screen is negative. Risk Assessment: Do you want to hurt yourself or someone else? Patient reports no desire to harm self or others. Onset of symptoms was March 21, 2022. 12:57 Method Of Arrival: EMS: [facility] ld1 12:57 Acuity: [place] 3 ld1 Triage Assessment: 12:58 General: Appears in no apparent distress. comfortable, Behavior is calm, cooperative, ld1 appropriate for age. Pain: Unable to use pain scale. AMS. EENT: No signs and/or symptoms were reported regarding the EENT system. Neuro: Level of Consciousness is confused, lethargic, Oriented to none. Cardiovascular: Capillary refill < 3 seconds Patient's skin is warm and dry. Rhythm is sinus rhythm. Respiratory: Airway is patent Respiratory effort is even, unlabored. GI: Abdomen is round non-distended. :. Historical: - Allergies: 12:58 No Known Allergies; ld1 - PMHx: 12:58 Alzheimers; Hypertension; allergies; Diabetes - NIDDM; Hypothyroidism; osteoarthritis; ld1 GERD; Diabetes - IDDM; insomnia; Anxiety; Depression; Hyperlipidemia; Anemia; - PSHx: 12:58 None; ld1 - Immunization history:: Adult Immunizations up to date, Client reports having NOT received the Covid vaccine. - Social history:: Smoking status: Patient denies any tobacco usage or history of. Patient/guardian denies using alcohol. - History obtained from: EMS. - Unable to obtain history due to: altered mental status. Screenin:00 Abuse screen: Denies threats or abuse. Denies injuries from another. Nutritional ld1 screening: No deficits noted. Tuberculosis screening: No symptoms or risk factors identified. Fall Risk None identified. Assessment: 13:00 Reassessment: See triage assessment. ld1 Vital Signs: 12:57 BP 154 / 80; Pulse 81; Resp 14; Temp 97.6(A); Pulse Ox 100% on R/A; Weight 95.25 kg; ld1 Height 5 ft. 3 in. (160.02 cm); 14:23 BP 102 / 83; Pulse 82; Temp 97.5(R); Pulse Ox 100% ; ld1 15:37 BP 153 / 95; Pulse 84; Resp 18; Pulse Ox 100% on R/A; ld1 18:40 BP 156 / 79; Pulse 97; Resp 18; Pulse Ox 100% on R/A; ld1 19:55 BP 146 / 114; Pulse 84; Resp 18; Pulse Ox 97% on R/A; ld1 12:57 Body Mass Index 37.20 (95.25 kg, 160.02 cm) ld1 ED Course: 12:52 Patient arrived in ED. ld1 12:55 Jose Carlos Olguin MD is Attending Physician. rn 12:55 Selam Smith RN is Primary Nurse. ld1 12:58 Triage completed. ld1 12:58 Arm band placed on right wrist. ld1 13:00 Patient has correct armband on for positive identification. Placed in gown. Bed in low ld1 position. Call light in reach. Side rails up X2. color television console monitor on. Pulse ox on. NIBP on. Door closed. Noise minimized. 13:00 No provider procedures requiring assistance completed. ld1 13:15 Inserted saline lock: 22 gauge in right forearm, using aseptic technique. Blood jg9 collected. 13:29 EKG done, by ED staff, reviewed by Jose Carlos Olguin MD. mb7 13:41 CXR XRAY In Process Unspecified. EDMS 15:21 Raz Nieto MD is Hospitalizing Provider. rn 15:53 CT Head Brain wo Cont In Process Unspecified. EDMS 19:56 Patient admitted, IV remains in place. ld1 Administered Medications: 13:36 Drug: NS 0.9% 1000 ml Route: IV; Rate: 1000 ml; Site: right antecubital; ld1 14:26 Drug: NS 0.9% (30 ml/kg) 30 ml/kg Route: IV; Rate: bolus; Site: right jugular; ld1 14:26 Drug: Rocephin (cefTRIAXone) 1 grams Route: IV; Rate: calculated rate; Site: right ld1 jugular; Medication: 13:00 VIS not applicable for this client. ld1 Outcome: 15:21 Decision to Hospitalize by Provider. rn 19:55 Admitted to Med/surg accompanied by tech, via stretcher, room 418, with chart, Report ld1 called to ISATU Niño 19:55 Condition: stable 19:55 Instructed on the need for admit. 20:43 Patient left the ED. ld1 Signatures: Dispatcher [employer] EDGA Jose Carlos Olguin MD MD rn Dibbern, Lauren, RN RN ld1 Rylee Llamas 7 Claudia Schmitz RN RN [id number]
--- NOTE | 2022-03-21 16:07 | RAD REPORT ---
EXAM DESCRIPTION: CT - Head Brain Wo Cont - 03/21/2022 3:51 pm CLINICAL HISTORY: Mental status change, unknown cause COMPARISON: Head C Spine Mpr Wo Con dated 06/09/2019 TECHNIQUE: Axial 5 mm thick images of the head were obtained without IV contrast. All CT scans are performed using dose optimization technique as appropriate and may include automated exposure control or mA/KV adjustment according to patient size. FINDINGS: No intracranial hemorrhage, mass, edema or shift of mid-line structures. No cortical level acute infarction. No cortical edema or sulcal effacement. Patient has advanced atrophy and moderatel y advanced chronic ischemic change. No abnormal extra-axial fluid collections. Ventricles are in prop ortion to the amount of volume loss. Intracranial findings are not substantially different from 2019. Arterial tree calcifications are present. Mastoid air cells and visualized portions of the paranasal sinuses are clear. No acute bony findings. IMPRESSION: No acute intracranial finding identified. Atrophy and chronic ischemic pattern matches the 2019 study.
--- NOTE | 2022-03-21 16:20 | P.HP ---
Certification for Inpatient Patient admitted to: Observation With expected LOS: >2 Midnights Patient will require the following post-hospital care: None Practitioner: I am a practitioner with admitting privileges, knowledge of patient current condition, hospital course, and medical plan of care. Services: Services provided to patient in accordance with Admission requirements found in Title 42 Section 412.3 of the Code of Federal Regulations Patient History Date of Service: 03/21/22 Reason for admission: Altered mental status History of Present Illness: 86-year-old [facility] resident with past medical history of Alzheimer's dementia, hypertension, diabetes mellitus, hypothyroid disease who was recently diagnosed with COVID but was initially asymptomatic 3 days ago at the [facility] noted to be having progressive decrease in alertness. Patient was noted to be very drowsy today and obtunded. She was sent down to the emergency room for new onset altered mental status. In the emergency room chest x-ray shows no acute infiltrate. Head CT was negative. EKG shows normal sinus rhythm with no new EKG changes. Urinalysis showed positive leukocytes esterase as well as WBC. Her lactate level was mildly elevated at 3.2. Her blood pressure was transiently low but improved with IVF. She was started on gentle IV fluid as well as antibiotics. she has been admitted for UTI with sepsis as well as metabolic encephalopathy. Allergies No Known Allergies Allergy (Verified 12/25/15 09:19) Home Medications: Atorvastatin Calcium [Lipitor*] 20 mg PO BEDTIME 06/09/19 Buspirone HCl [Buspar] 10 mg PO TID 06/09/19 Divalproex Sodium [Depakote] 125 cap PO BID 06/09/19 Donepezil [Aricept*] 10 mg PO BEDTIME 06/09/19 Duloxetine [Cymbalta *] 30 mg PO DAILY 06/09/19 Insulin Detemir [Levemir] 18 units SQ DAILY 06/09/19 Levothyroxine [Synthroid*] 50 mcg PO DAILY 06/09/19 Tramadol HCl [Ultram] 50 mg PO Q6H PRN 10 Days #30 tablet 06/10/19 - Past Medical/Surgical History Diabetic: Yes -: alzheimers -: anxiety -: Hypothyroidism -: Diabetes mellitus -: Hyperlipidemia -: CS 4x -: Hysterectomy -: Gallbladder removal -: Knee - Family History Mother -: Diabetes Father -: Hypertension - Social History Smoking Status: Never smoker Smoking therapy provided: No Patient receptive to therapy: No Alcohol use: No CD- Drugs: No Caffeine use: Yes Place of Residence: Custodial Review of Systems is unable to be obtained Physical Examination - Physical Exam General: Alert, In no apparent distress, Confused HEENT: Atraumatic, Normocephalic, PERRLA Neck: Supple, 2+ carotid pulse no bruit, JVD not distended Respiratory: Clear to auscultation bilaterally, Normal air movement Cardiovascular: No edema, Regular rate/rhythm, Normal S1 S2 Gastrointestinal: Normal bowel sounds, Soft and benign, Non-distended Integumentary: No rashes, No breakdown Neurological: Normal tone, Sensation intact, Dementia - Studies Laboratory Data (last 24 hrs) 03/21/22 13:20: PT 11.2, INR 1.02, APTT 33.3 03/21/22 13:20: WBC 7.4, Hgb 13.5, Hct 41.2, Plt Count 208 03/21/22 13:20: Sodium 142, Potassium 4.0, BUN 12, Creatinine 0.72, Glucose 115 H, Total Bilirubin 0.5, AST 15, ALT 16, Alkaline Phosphatase 88, Lipase 65 L Assessment and Plan Discharge Plan: Custodial - Advance Directives Does patient have a Living Will: No Does patient have a Durable POA for Healthcare: No - Code Status/Comfort Care Code Status: Full Code Physician Review: Patient Assessed, Agree with Above Assessment and Plan Physician Review Additional Text: Chest x-raychronic interstitial changes, unchanged from 2019. No acute COVID findings Impression UTI with sepsis Metabolic encephalopathy COVID bronchitis Hypotensiontransient Diabetes mellitus Hypothyroidism History of dementia Plan We will admit patient to observation Will start gentle IV fluid with normal saline Street glycemic control, insulin sliding scale with Accu-Cheks geodoin and ativan prn Start empirical antibiotics with Rocephin Hold all sedating medications for nowincluding her Cymbalta Obtain blood culture as well as urine culture We will keep in isolation for COVID infection No need to start and Decadron for COVID for now since asymptomatic Subcutaneous Lovenox for DVT prophylaxis GI prophylaxis with PPI Advance directivefrom fpc- full code Time Spent Managing Pts Care (In Minutes): 70
[2022-03-21] MEDS ORDERED: ONDANSETRON 4 MG/2 ML VIAL IV PRN (16:22)
[2022-03-21] MEDS ORDERED: ACETAMINOPHEN 500 MG TAB PO PRN (16:22)
[2022-03-21] MEDS ORDERED: MORPHINE 2 MG/ML SYR IV PRN (16:22)
[2022-03-21] MEDS ORDERED: ALBUTEROL 2.5 MG/3 ML NEB SOL NEB PRN (16:22)
[2022-03-21] MEDS ORDERED: HYDRALAZINE HCL 20 MG/ML VIAL IV PRN (16:25)
[2022-03-21] MEDS ORDERED: BENZONATATE 100 MG CAP PO PRN (16:25)
[2022-03-21] MEDS ORDERED: guaiFENesin 100 MG/5 ML UCUP PO PRN (16:25)
[2022-03-21] MEDS: INSULIN -REGULAR HUMAN 50 UNIT/0.5 ML ML SQ SCH ×2 (16:30→21:00)
[2022-03-21] MEDS ORDERED: LORazepam 2 MG/ML VIAL IV PRN (16:42)
[2022-03-21] MEDS ORDERED: ZIPRASIDONE MESYLA 20 MG/VIAL IM PRN (16:42)
[2022-03-21] MEDS ORDERED: WATER FOR INJ,STERILE 10 ML IM PRN (16:42)
[2022-03-21] MEDS: CEFTRIAXONE 1,000 MG in NA CHLORIDE 0.9% 50 ML IVPB SCH (17:00)
[2022-03-21] MEDS ORDERED: NA CHLORIDE 0.9% 1,000 ML IV SCH (17:00)
[2022-03-21] MEDS ORDERED: LORazepam 2 MG/ML VIAL ONE (19:22)
[2022-03-21 21:00] VITALS: O2SAT 97
[2022-03-21] MEDS ORDERED: HOME MED 1 EA UNK (Divalproex Sodium [Depakote] 125 MG Tablet.Dr) PO SCH (21:00)
[2022-03-21] MEDS: DIVALPROEX NA 125 MG CAP PO SCH (21:00)
[2022-03-21] MEDS: DONEPEZIL HCL 5 MG TAB PO SCH (21:16)
[2022-03-21] MEDS: ENOXAPARIN 40 MG/0.4 ML SQ SCH (21:16)
[2022-03-21] MEDS ORDERED: D10W 250 ML IV SCH (22:00)
[2022-03-21] MEDS ORDERED: DEXTROSE 10%-WATER 500 ML IV ONE (22:36)
[2022-03-21] MEDS: D5 0.45 NS 1,000 ML IV SCH (23:10)
[2022-03-21 23:40] VITALS: BMI 37.0
[2022-03-22] MEDS ORDERED: KCL 20 MEQ/100 mL IVPB 20 MEQ/100 ML BAG IV ONE (00:01)
[2022-03-22] MEDS: LEVOTHYROXINE SOD 0.05 MG TABLET PO SCH (06:00)
[2022-03-22] MEDS: INSULIN -REGULAR HUMAN 50 UNIT/0.5 ML ML SQ SCH ×4 (07:30→21:00)
[2022-03-22 07:41] LABS: Absolute Lymphocytes (CBC) 2.1 K/uL (0.7-4.9); Hematocrit 36.8 % (36.0-45.0); Lymphocytes % 29.4 % (15.3-44.8); MCV 87.1 fL (80-100); MPV 9.9 fL (7.6-11.3); RBC Red Blood Cell Count 4.23 M/uL (3.86-4.86)
[2022-03-22] MEDS: DIVALPROEX NA 125 MG CAP PO SCH ×2 (09:00→20:59)
[2022-03-22] MEDS: ENOXAPARIN 40 MG/0.4 ML SQ SCH (10:00)
[2022-03-22] MEDS: CEFTRIAXONE 1,000 MG in NA CHLORIDE 0.9% 50 ML IVPB SCH (10:01)
--- NOTE | 2022-03-22 11:20 | P.PN ---
Subjective Date of Service: 03/22/22 Chief Complaint: Altered mental status Subjective: No new changes Physical Examination - Vital Signs Temperature: 96.9 F Blood Pressure: 133/75 Pulse: 94 Respirations: 16 Pulse Ox (%): 97 - Physical Exam General: Alert, Oriented x3 HEENT: Atraumatic, Normocephalic Neck: Supple Respiratory: Normal air movement Cardiovascular: Regular rate/rhythm, Normal S1 S2 Gastrointestinal: Soft and benign Musculoskeletal: No swelling Neurological: Normal speech - Studies Laboratory Data (last 24 hrs) 03/21/22 13:20: PT 11.2, INR 1.02, APTT 33.3 03/21/22 13:20: WBC 7.4, Hgb 13.5, Hct 41.2, Plt Count 208 03/21/22 13:20: Sodium 142, Potassium 4.0, BUN 12, Creatinine 0.72, Glucose 115 H, Total Bilirubin 0.5, AST 15, ALT 16, Alkaline Phosphatase 88, Lipase 65 L Microbiology Data (last 24 hrs): 03/21/22 14:02 Blood - Blood Blood Culture Gram Stain - Final Assessment And Plan - Plan Impression UTI with sepsis Metabolic encephalopathy COVID bronchitis Hypotensiontransient Diabetes mellitus Hypothyroidism History of dementia Plan Still lethargic and deconditioned. has no new issues with blood pressure and vitals. stable oxygen saturation. No need for decadron therapy for now. urine culture is growing gram neg rods. we will continue empiric antibiotic therapy pending urine culture finalzation. we will continue SSI for glucose control. Physician Review: Patient Assessed, Agree with Above Assessment and Plan
--- NOTE | 2022-03-22 17:29 | EKG ---
Test Date: 2022-03-21 Test Time: 13:28:11 C 40A Crew Chief: ANA CRISTINA MEASUREMENT RESULTS: Intervals: Rate: 85 DE: 172 QRSD: 68 QT: 380 QTc: 452 [place]: P: 69 DE: 172 QRS: 24 T: 41 INTERPRETIVE STATEMENTS: Normal sinus rhythm Low voltage QRS Borderline ECG Compared to ECG 06/09/2019 09:17:53 Low QRS voltage now present Electronically Signed On 03-22-22 17:27:28 CDT by Abdirizak Ford
[2022-03-22] MEDS: D5 0.45 NS 1,000 ML IV SCH (20:35)
[2022-03-22] MEDS: DONEPEZIL HCL 5 MG TAB PO SCH (20:59)
[2022-03-22 21:08] LABS: Albumin 2.7 g/dL (3.4-5.0); Bilirubin Total 0.4 mg/dL (0.2-1.0); Potassium 3.3 mmol/L (3.5-5.1); Protein, Total 5.9 g/dL (6.4-8.2); Thyroid Stimulating Hormone 2.19 uIU/mL (0.360-3.740)
[2022-03-22 21:16] LABS: Magnesium 1.3 mg/dL (1.8-2.4)
[2022-03-22] MEDS ORDERED: Magnesium Sulfate 2gm IVPB 2 G/50 ML BAG IV ONE (21:57)
[2022-03-22] MEDS ORDERED: KCL 20 MEQ/100 mL IVPB 20 MEQ/100 ML BAG IV SCH (23:00)
[2022-03-23 05:20] LABS: Lymphocytes % 30.1 % (15.3-44.8); MCV 84.8 fL (80-100); MPV 9.6 fL (7.6-11.3)
[2022-03-23 05:54] LABS: ALT/SGPT 11 U/L (12-78); AST/SGOT 11 U/L (15-37); Albumin 2.8 g/dL (3.4-5.0); Alkaline Phosphatase 76 U/L (45-117); Bicarbonate 30 mmol/L (21-32); Bilirubin Total 0.4 mg/dL (0.2-1.0); Glomerular Filtration Rate 92 ml/min (=/>90); Glucose Level 144 mg/dL (74-106); Magnesium 2.1 mg/dL (1.8-2.4); Potassium 3.6 mmol/L (3.5-5.1); Protein, Total 6.1 g/dL (6.4-8.2); Sodium Level 140 mmol/L (136-145)
[2022-03-23 06:04] LABS: BUN Blood Urea Nitrogen < 3 mg/dL (7-18)
[2022-03-23] MEDS: LEVOTHYROXINE SOD 0.05 MG TABLET PO SCH (06:35)
[2022-03-23] MEDS: INSULIN -REGULAR HUMAN 50 UNIT/0.5 ML ML SQ SCH ×5 (07:30→21:53)
[2022-03-23] MEDS ORDERED: POTASSIUM CL SA 10 MEQ TAB PO ONE (09:00)
--- NOTE | 2022-03-23 10:42 | P.PN ---
Subjective Date of Service: 03/23/22 Chief Complaint: Altered mental status Subjective: No new changes Physical Examination - Vital Signs Temperature: 97.6 F Blood Pressure: 117/53 Pulse: 83 Respirations: 18 Pulse Ox (%): 95 - Physical Exam General: Alert, Oriented x3 HEENT: Atraumatic, Normocephalic Neck: Supple Cardiovascular: Regular rate/rhythm, Normal S1 S2 Gastrointestinal: Soft and benign Musculoskeletal: No swelling Neurological: Normal speech - Studies Microbiology Data (last 24 hrs): 03/21/22 13:24 Clean Catch Urine [place] Count - Final >100,000 CFU/ML. 03/21/22 13:24 Clean Catch Urine - Final Escherichia Coli Gram Neg Gagan 03/21/22 14:02 Blood - Blood Blood Culture Gram Stain - Final Assessment And Plan - Plan Impression UTI with sepsis Metabolic encephalopathy COVID bronchitis Hypotensiontransient Diabetes mellitus Hypothyroidism History of dementia Plan Still lethargic and deconditioned. has no new issues with blood pressure and vitals. stable oxygen saturation. No need for decadron therapy for now. urine culture grew E coli. Rocephin to be continued. we will continue SSI for glucose control. Physician Review: Patient Assessed, Agree with Above Assessment and Plan
[2022-03-23] MEDS: CEFTRIAXONE 1,000 MG in NA CHLORIDE 0.9% 50 ML IVPB SCH (10:46)
[2022-03-23] MEDS: ENOXAPARIN 40 MG/0.4 ML SQ SCH (10:47)
[2022-03-23] MEDS: DIVALPROEX NA 125 MG CAP PO SCH ×2 (10:49→21:54)
[2022-03-23] MEDS: D5 0.45 NS 1,000 ML IV SCH (14:00)
[2022-03-23] MEDS: LORAZEPAM 1 MG TABLET PO PRN (21:54)
[2022-03-23] MEDS: DONEPEZIL HCL 5 MG TAB PO SCH (21:54)
[2022-03-24 04:30] LABS: Bilirubin Total 0.4 mg/dL (0.2-1.0); Magnesium 1.9 mg/dL (1.8-2.4); Potassium 3.5 mmol/L (3.5-5.1); Protein, Total 6.2 g/dL (6.4-8.2)
[2022-03-24] MEDS: LEVOTHYROXINE SOD 0.05 MG TABLET PO SCH (06:04)
[2022-03-24] MEDS: INSULIN -REGULAR HUMAN 50 UNIT/0.5 ML ML SQ SCH ×4 (07:30→20:46)
[2022-03-24] MEDS ORDERED: POTASSIUM CL SA 10 MEQ TAB PO ONE (09:00)
[2022-03-24] MEDS: ENOXAPARIN 40 MG/0.4 ML SQ SCH (09:46)
[2022-03-24] MEDS: CEFTRIAXONE 1,000 MG in NA CHLORIDE 0.9% 50 ML IVPB SCH (09:47)
[2022-03-24] MEDS: DIVALPROEX NA 125 MG CAP PO SCH ×2 (09:47→20:46)
[2022-03-24] MEDS: DONEPEZIL HCL 5 MG TAB PO SCH (20:46)
[2022-03-24] MEDS: LORAZEPAM 1 MG TABLET PO PRN (20:46)
--- NOTE | 2022-03-24 23:21 | P.PN ---
Date of Service: 03/24/22 Subjective Subjective: No new changes; difficulty communicating with patient. Speaking to family regarding placement Physical Examination - Vital Signs reviewed - Physical Exam General: Alert, and she responds to all my questions but she is speaking in [place] Cardiovascular: Regular rate/rhythm, Normal S1 S2 Gastrointestinal: Soft and benign Musculoskeletal: No swelling Neurological: Normal speech Assessment And Plan - Plan Impression UTI with sepsis Metabolic encephalopathy COVID bronchitis Hypotensiontransient Diabetes mellitus Hypothyroidism History of dementia Plan continue with antibiotic therapy has no new issues with blood pressure and vitals. stable oxygen saturation. No need for decadron therapy for now. urine culture grew E coli. we will continue SSI for glucose control.
[2022-03-25 05:41] LABS: Potassium 3.9 mmol/L (3.5-5.1)
[2022-03-25] MEDS ORDERED: POTASSIUM CL SA 10 MEQ TAB PO ONE (05:56)
[2022-03-25] MEDS: LEVOTHYROXINE SOD 0.05 MG TABLET PO SCH (06:23)
[2022-03-25] MEDS: INSULIN -REGULAR HUMAN 50 UNIT/0.5 ML ML SQ SCH ×4 (07:30→21:11)
[2022-03-25] MEDS: CEFTRIAXONE 1,000 MG in NA CHLORIDE 0.9% 50 ML IVPB SCH (09:54)
[2022-03-25] MEDS: DIVALPROEX NA 125 MG CAP PO SCH ×2 (09:54→21:11)
[2022-03-25] MEDS: ENOXAPARIN 40 MG/0.4 ML SQ SCH (09:54)
[2022-03-25] MEDS: DONEPEZIL HCL 5 MG TAB PO SCH (21:11)
--- NOTE | 2022-03-25 22:51 | P.PN ---
Date of Service: 03/25/22 Subjective Subjective: patient living at [facility]. Mentation is coming back to baseline. Possible transfer back in the morning. Physical Examination - Vital Signs reviewed - Physical Exam General: Alert, and she responds to all my questions but she is speaking in [place] Cardiovascular: Regular rate/rhythm, Normal S1 S2 Gastrointestinal: Soft and benign Musculoskeletal: No swelling Neurological: Normal speech Assessment And Plan - Plan Impression UTI with sepsis Metabolic encephalopathy COVID bronchitis Hypotensiontransient Diabetes mellitus Hypothyroidism History of dementia Plan continue with antibiotic therapy stable oxygen saturation. urine culture grew E coli. we will continue SSI for glucose control.
[2022-03-26] MEDS: LEVOTHYROXINE SOD 0.05 MG TABLET PO SCH (06:24)
[2022-03-26 06:40] LABS: Absolute Lymphocytes (CBC) 2.5 K/uL (0.7-4.9); Hematocrit 33.6 % (36.0-45.0); Lymphocytes % 26.7 % (15.3-44.8); MCV 85.3 fL (80-100); MPV 8.7 fL (7.6-11.3); RBC Red Blood Cell Count 3.94 M/uL (3.86-4.86)
[2022-03-26 07:20] LABS: Magnesium 1.7 mg/dL (1.8-2.4); Potassium 3.7 mmol/L (3.5-5.1)
[2022-03-26 07:26] LABS: Thyroid Stimulating Hormone 5.74 uIU/mL (0.360-3.740)
[2022-03-26] MEDS: INSULIN -REGULAR HUMAN 50 UNIT/0.5 ML ML SQ SCH ×3 (07:30→16:27)
[2022-03-26] MEDS: CEFTRIAXONE 1,000 MG in NA CHLORIDE 0.9% 50 ML IVPB SCH (09:00)
[2022-03-26] MEDS: ENOXAPARIN 40 MG/0.4 ML SQ SCH (10:07)
[2022-03-26] MEDS: DIVALPROEX NA 125 MG CAP PO SCH (10:07)
[2022-03-26] MEDS ORDERED: levoFLOXacin 750 MG TAB PO SCH (11:00)
--- NOTE | 2022-03-26 15:35 | P.DS ---
Discharge Date: 03/26/22 Disposition: TRANSFER TO [facility] Discharge Condition: GOOD Reason for Admission: Altered mental status Brief History of Present Illness: 86-year-old longterm resident with past medical history of Alzheimer's dementia, hypertension, diabetes mellitus, hypothyroid disease who was recently diagnosed with COVID but was initially asymptomatic 3 days ago at the longterm noted to be having progressive decrease in alertness. Patient was noted to be very drowsy today and obtunded. She was sent down to the emergency room for new onset altered mental status. In the emergency room chest x-ray shows no acute infiltrate. Head CT was negative. EKG shows normal sinus rhythm with no new EKG changes. Urinalysis showed positive leukocytes esterase as well as WBC. Her lactate level was mildly elevated at 3.2. Her blood pressure was transiently low but improved with IVF. She was started on gentle IV fluid as well as antibiotics. she has been admitted for UTI with sepsis as well as metabolic encephalopathy. Hospital Course: Patient is doing much better. She is awake and interacting appropriately. She is eating and tolerating some her diet. Respiratory status is stable. Patient is back to the baseline according to what [facility] nursing staff spoke to me regarding. She will be discharged back to longterm. Vital Signs/Physical Exam: Temp Pulse Resp BP Pulse Ox 97.1 F 78 16 143/69 H 97 03/26/22 11:44 03/26/22 11:44 03/26/22 11:44 03/26/22 11:44 03/26/22 11:44 General: Alert, Demented Laboratory Data at Discharge: WBC 9.2 K/uL (4.3-10.9) D 03/26/22 06:26 Hgb 11.2 g/dL (12.0-15.0) L 03/26/22 06:26 Hct 33.6 % (36.0-45.0) L 03/26/22 06:26 Plt Count 256 K/uL (152-406) D 03/26/22 06:26 PT 11.2 SECONDS (9.5-12.5) 03/21/22 13:20 INR 1.02 03/21/22 13:20 APTT 33.3 SECONDS (24.3-36.9) 03/21/22 13:20 Sodium 139 mmol/L (136-145) 03/26/22 06:26 Potassium 3.7 mmol/L (3.5-5.1) 03/26/22 06:26 BUN 9 mg/dL (7-18) 03/26/22 06:26 Creatinine 0.49 mg/dL (0.55-1.3) L 03/26/22 06:26 Glucose 129 mg/dL (74-106) H 03/26/22 06:26 Magnesium 1.7 mg/dL (1.8-2.4) L 03/26/22 06:26 Total Bilirubin 0.4 mg/dL (0.2-1.0) 03/24/22 03:39 AST 9 U/L (15-37) L 03/24/22 03:39 ALT 12 U/L (12-78) 03/24/22 03:39 Alkaline Phosphatase 77 U/L (45-117) 03/24/22 03:39 Lipase 65 U/L (73-393) L 03/21/22 13:20 Home Medications: Atorvastatin Calcium [Lipitor*] 20 mg PO BEDTIME 06/09/19 Buspirone HCl [Buspar] 20 mg PO TID 06/09/19 Divalproex Sodium [Depakote] 125 cap PO BID 06/09/19 Donepezil [Aricept*] 10 mg PO BEDTIME 06/09/19 Duloxetine [Cymbalta *] 60 mg PO DAILY 06/09/19 Insulin Detemir [Levemir] 18 units SQ DAILY 06/09/19 Levothyroxine [Synthroid*] 50 mcg PO DAILY 06/09/19 Ascorbic Acid/Ascorbate Sodium [Vitamin C 500 mg Tablet Chew] 1,000 mg PO DAILY 03/22/22 Cholecalciferol (Vitamin D3) [Vitamin D 1000 Iu Tab*] 2,000 unit PO DAILY 03/22/22 Famotidine [Pepcid*] 20 mg PO BEDTIME 03/22/22 Ipratropium/Albuterol Sulfate [Iprat-Albut 0.5-3(2.5) mg/3 ml] 3 ml IH Q6HR PRN 03/22/22 Lisinopril [Zestril] 30 mg PO DAILY 03/22/22 Memantine HCl [Namenda] 10 mg PO BID 03/22/22 Metformin HCl [Glucophage*] 500 mg PO DAILY WITH BREAKFAST 03/22/22 Pregabalin [Lyrica*] 50 mg PO BID 03/22/22 Albuterol Neb [Proventil 0.083% Neb Soln] 2.5 mg NEB [id number] PRN amp 03/26/22 Benzonatate [Tessalon Perle*] 200 mg PO TID PRN #30 cap 03/26/22 guaiFENesin [Robitussin 100MG/5ML*] 10 ml PO QID PRN ucup 03/26/22 levoFLOXacin [Levaquin*] 750 mg PO DAILY #5 tab 03/26/22 New Medications: levoFLOXacin [Levaquin*] 750 mg PO DAILY #5 tab Benzonatate [Tessalon Perle*] 200 mg PO TID PRN #30 cap PRN Reason: Cough Physician Discharge Instructions: -DC IV and DC to longterm -Follow-up with PCP in 1 to 2 weeks -Please call Dr. Abbasi at [phone] if any questions regarding hospital stay -Please call nursing station at [phone] if any nursing or medication questions -Return to the emergency room if symptoms worsen Diet: Regular Activity: Fall precautions Followup: Unknown,U [Primary Care Provider] - Time spent managing pt's care (in minutes): 35
[2022-03-26 16:22] VITALS: BP 159/68; TEMP 97.5
== END 2022-03-26 17:36 | DRG 871 ==
LOC: ER 12:51 → ERHOLD 16:42 → 4TH 19:55
PROVIDERS: ADMIT Internal Medicine; ATTEND Hospitalist
DX: A41.1 Sepsis due to other specified staphylococcus (principal); G93.41 Metabolic encephalopathy; U07.1 COVID-19; N39.0 Urinary tract infection, site not specified; R65.20 Severe sepsis without septic shock; F02.80 Dementia in other diseases classified elsewhere, unspecified severity, without behavioral disturbance, psychotic disturbance, mood disturbance, and anxiety; E11.9 Type 2 diabetes mellitus without complications; E03.9 Hypothyroidism, unspecified; B96.20 Unspecified Escherichia coli [E. coli] as the cause of diseases classified elsewhere; G30.9 Alzheimer's disease, unspecified; J20.8 Acute bronchitis due to other specified organisms; I95.89 Other hypotension
CPT/HCPCS: 36415; 70450; 71045; 80048; 80053; 80076; 81003; 81015; 82140; 82607; 82728; 82947; 83605; 83690; 83735; 84145; 84439; 84443; 84484; 85025; 85610; 85730; 86140; 87040; 87077; 87086; 87088; 87186; 87205; 93005; 96374; 96375; 99285; J1650; J1815; J3475; J3480; J7030; J7799; U0003

== ENCOUNTER 2023-05-03 08:20 | Inpatient (IN) | payer OTHER ==
[2023-05-03] MEDS ORDERED: ACETAMINOPHEN 650MG/RECT SUPP PR ONE (08:48)
--- NOTE | 2023-05-03 08:50 | RAD REPORT ---
EXAM DESCRIPTION: Rubén Single View05/03/2023 8:41 am CLINICAL HISTORY: Fever COMPARISON: 2021 FINDINGS: The lungs appear clear of acute infiltrate. The heart is normal size IMPRESSION: No acute abnormalities displayed
[2023-05-03 09:16] LABS: Absolute Lymphocytes (CBC) 4.6 K/uL (0.7-4.9); Hematocrit 46.5 % (36.0-45.0); Lymphocytes % 29.1 % (15.3-44.8); MPV 10.2 fL (7.6-11.3); Platelets 251 thou/uL (152-406); RBC Red Blood Cell Count 4.89 M/uL (3.86-4.86)
[2023-05-03 09:22] LABS: Protime INR 1.22
[2023-05-03 09:34] LABS: Albumin 3.1 g/dL (3.4-5.0); Bilirubin Total 0.7 mg/dL (0.2-1.0); Potassium 3.8 mEq/L (3.5-5.1); Protein, Total 7.1 g/dL (6.4-8.2)
[2023-05-03 09:48] LABS: Specific Gravity 1.011 (1.005-1.030); Urine Bacteria >50 /HPF (<20); Urine Bilirubin NEGATIVE (Negative); Urine Blood Trace (Negative); Urine Clarity Extremely Turbid (Clear); Urine Color Orange (Yellow); Urine Glucose TRACE (Negative); Urine Mucus 1+ /HPF (None Seen); Urine Protein 1+ (Negative); Urine Urobilinogen Normal (Normal)
[2023-05-03] MEDS ORDERED: NA CHLORIDE 0.9% 1,000 ML ONE (09:53)
[2023-05-03] MEDS ORDERED: CEFTRIAXONE 1000 MG/VIAL ONE (09:53)
--- NOTE | 2023-05-03 11:12 | ER ---
Nurse's Notes [facility] Name: Shankar Sandoval Age: 87 yrs Sex: Female : 1935 Arrival Date: 05/03/2023 Time: 08:20 Bed 13 Private MD: Diagnosis: Sepsis, unspecified organism;UTI/ Urinary tract infection, site not specified;Altered mental status, unspecified Presentation: 05/03 08:15 Chief complaint: EMS states: called out to [facility] for resident with mental status ko1 change, hypotension, tachycardia and fever which began last night. Resident has been recently placed on Rocephin for possible UTI. Coronavirus screen: At this time, the client does not indicate any symptoms associated with coronavirus-19. Ebola Screen: No symptoms or risks identified at this time. Initial Sepsis Screen: Does the patient meet any 2 criteria? Temp <36.0*C (96.8*F)) or > 38.3*C (100.9*F). Altered Mental Status. HR > 90 bpm. Yes Does the patient have a suspected source of infection? No. Patient's initial sepsis screen is negative. Risk Assessment: Do you want to hurt yourself or someone else? Unable to obtain. Onset of symptoms was May 03, 2023. Care prior to arrival: IV initiated. 22 GA, in the right forearm, Glucose check: 285. Transition of care: patient was received from another setting of care (long-term care facility), [facility]. 08:15 Method Of Arrival: EMS: [facility] ko1 08:15 Acuity: [place] 3 ko1 Triage Assessment: 08:15 General: Appears in no apparent distress. ill, obese, Behavior is lethargic. Pain: ko1 Unable to use pain scale. Patient is disoriented. Historical: - Allergies: 09:36 No Known Allergies; ko1 - Immunization history:: Adult Immunizations up to date. - Social history:: Smoking status: unknown. Screenin:15 [facility] ED Fall Risk Assessment (Adult) History of falling in the last 3 months, ko1 including since admission No falls in past 3 months (0 pts) Confusion or Disorientation Yes (5 pts) Intoxicated or Sedated No (0 pts) Impaired Gait Yes (1 pt) Mobility Assist Device Used Yes (1 pt) Altered Elimination Yes (1 pt) Score/Fall Risk Level 3 or more points = High Risk Oriented to surroundings, Maintained a safe environment, Educated pt \T\ family on fall prevention, incl call for assistance when getting out of bed, Assessed \T\ reinforced patient's understanding of fall precautions, Provided non-skid footwear, Hourly rounding (assess needs \T\ fall precautionary measures) done, Used ambulatory aids as needed (educated on \T\ assisted with), Apply high fall risk patient identification: yellow non skid footwear/ fall signage. Abuse screen: Denies threats or abuse. Denies injuries from another. Nutritional screening: No deficits noted. Tuberculosis screening: No symptoms or risk factors identified. Assessment: 08:15 Neuro: Level of Consciousness is lethargic, Pupils are PERRLA, Pupil Size: 2mm. ko1 Cardiovascular: Rhythm is sinus tachycardia. Respiratory: No deficits noted. GI: No deficits noted. : Urine is cloudy. EENT: Oral mucosa is dry. Poor dentition noted. Derm: No deficits noted. Musculoskeletal: No deficits noted. Vital Signs: 08:15 BP 134 / 74 LA Supine (auto/lg); Pulse 118; Resp 16; Temp 101.5(O); Pulse Ox 96% on R/A;ko1 09:00 BP 151 / 98; Pulse 110; Resp 18; Pulse Ox 98% on R/A; ko1 10:00 BP 177 / 96; Pulse 107; Resp 18; Pulse Ox 97% ; ko1 10:56 BP 175 / 97; Pulse 100; Resp 16; Pulse Ox 97% on R/A; ko1 14:03 BP 181 / 103; Pulse 102; Resp 16; Temp 98.9(O); Pulse Ox 98% on R/A; ko1 ED Course: 08:15 Arm band placed on right wrist. Patient placed in an exam room, on a stretcher, on ko1 compliance monitor, on pulse oximetry, Patient notified of wait time. 08:22 Patient arrived in ED. eb 08:24 Mildred Pearce FNP-C is PHCP. kb 08:25 Jase Arriaza MD is Attending Physician. kb 08:35 Quyen Loya, ISATU is Primary Nurse. ko1 08:42 Chest Single View XRAY In Process Unspecified. EDMS 08:45 Inserted saline lock: 22 gauge in left antecubital area, using aseptic technique. Blood ko1 collected. 08:45 Patient has correct armband on for positive identification. Placed in gown. Bed in low ko1 position. Call light in reach. Side rails up X2. Provided Education on: NA. Client placed on continuous cardiac and pulse oximetry monitoring. NIBP monitoring applied. ekg monitor tech on. Door closed. Noise minimized. Lights dimmed. 09:13 Protime (+inr) Sent. ko1 09:13 Ptt, Activated Sent. ko1 09:13 Blood Culture Adult (2) Sent. ko1 09:13 CBC with Diff Sent. ko1 09:13 CMP Sent. ko1 09:13 Lactate w/ 2H reflex if indic. Sent. ko1 09:28 Urinalysis w/ reflexes Sent. ds4 09:36 Triage completed. ko1 11:11 Lincoln Olguin MD is Hospitalizing Provider. kb 14:03 No provider procedures requiring assistance completed. Patient admitted, IV remains in ko1 place. Administered Medications: 09:22 Drug: Acetaminophen KS Suppository 650 mg Route: KS; ko1 12:00 Follow up: Response: No adverse reaction; Temperature is decreased ko1 09:46 Drug: NS 0.9% IV 1000 ml Route: IV; Rate: 1000 ml; Site: right antecubital; ko1 11:25 Follow up: Response: No adverse reaction; IV Status: Completed infusion; IV Intake: ko1 1000ml 11:30 Follow up: Response: No adverse reaction; IV Status: Completed infusion; IV Intake: ko1 1000ml 09:46 Drug: Rocephin IV 1 grams Route: IV; Rate: calculated rate; Site: right antecubital; ko1 11:24 Follow up: Response: No adverse reaction ko1 12:00 Follow up: Response: No adverse reaction ko1 Medication: 14:03 VIS not applicable for this client. ko1 Intake: 11:25 IV: 1000ml; Total: 1000ml. ko1 11:30 IV: 1000ml; Total: 2000ml. ko1 Outcome: 11:11 Decision to Hospitalize by Provider. kb 14:41 Patient left the ED. mm9 14:41 Admitted to Med/surg accompanied by tech, via stretcher, room 211, with oxygen, with ko1 chart, Report called to ISATU Matthews 14:41 Condition: stable 14:41 Discharge instructions given to family, Instructed on the need for admit, Demonstrated understanding of instructions. Signatures: Dispatcher [employer] Mildred Sullivan, FREIGHT CAR LOADER-C FREIGHT CAR LOADER-Carmine Meehan ds4 Ros Craft Kathy, RN RN ko1 Morelia Irvin mm9
--- NOTE | 2023-05-03 11:12 | EDPHYS ---
Physician Documentation [facility] Name: Shankar Sandoval Age: 87 yrs Sex: Female : 1935 Arrival Date: 05/03/2023 Time: 08:20 Bed 13 Private MD: ED Physician Jase Arriaza HPI: 05/03 10:46 This 87 yrs old Female presents to ER via EMS with complaints of fever. kb 10:46 The patient reports fever, with an emergency department temperature of 101.5 degrees kb Fahrenheit. Onset: The symptoms/episode began/occurred last night. Modifying factors: there are no obvious modifying factors. Associated signs and symptoms: Pertinent positives: fever, altered mental status. Severity of symptoms: At their worst the symptoms were mild in the emergency department the symptoms are unchanged. The patient has experienced similar episodes in the past. The patient has not recently seen a physician. longterm staff reports pt started running fever last night with increased heart rate and altered mental status. States symptoms continued through the night so they sent her in for evaluation today. They sent a urine to lab yesterday and started rocephin. Historical: - Allergies: 09:36 No Known Allergies; ko1 - Immunization history:: Adult Immunizations up to date. - Social history:: Smoking status: unknown. ROS: 11:26 Respiratory: Negative for shortness of breath, cough, wheezing, and pleuritic chest kb pain. 11:26 Unable to obtain ROS due to altered mental status. Exam: 08:33 ECG was reviewed by the Attending Physician. kb 11:23 Constitutional: The patient appears well developed, well nourished, responds to verbal kb stimuli 11:23 Respiratory: Respirations even and unlabored. No increased work of breathing. Skin: kb Warm, dry with normal turgor. Normal color. 11:23 Eyes: Pupils: PERRL. 11:23 ENT: dry MM. 11:23 Abdomen/GI: Inspection: obese Bowel sounds: normal, Palpation: abdomen is soft and non-tender, in all quadrants. 11:23 Neuro: Mentation: responsive to voice Vital Signs: 08:15 BP 134 / 74 LA Supine (auto/lg); Pulse 118; Resp 16; Temp 101.5(O); Pulse Ox 96% on R/A;ko1 09:00 BP 151 / 98; Pulse 110; Resp 18; Pulse Ox 98% on R/A; ko1 10:00 BP 177 / 96; Pulse 107; Resp 18; Pulse Ox 97% ; ko1 10:56 BP 175 / 97; Pulse 100; Resp 16; Pulse Ox 97% on R/A; ko1 14:03 BP 181 / 103; Pulse 102; Resp 16; Temp 98.9(O); Pulse Ox 98% on R/A; ko1 MDM: 08:25 Patient medically screened. kb 10:43 Data reviewed: vital signs, nurses notes. kb 11:10 Differential diagnosis: UTI, sepsis, pneumonia. Consideration of Admission/Observation kb Patient was admitted/placed on observation. Escalation of care including admission/observation considered. Management of patient was discussed with the following: Hospitalist: Dr Olguin. Historians other than the Patient: EMS: [facility]. longterm staff. Counseling: I had a detailed discussion with the patient and/or guardian regarding: the historical points, exam findings, and any diagnostic results supporting the discharge/admit diagnosis, lab results, radiology results, the need for further work-up and treatment in the hospital. 05/03 08:25 Order name: Blood Culture Adult (2) kb 05/03 08:25 Order name: CBC with Diff; Complete Time: 09:17 kb 05/03 08:25 Order name: CMP; Complete Time: 09:47 kb 05/03 08:25 Order name: Lactate w/ 2H reflex if indic.; Complete Time: 09:17 kb 05/03 08:25 Order name: Protime (+inr); Complete Time: 09:26 kb 05/03 08:25 Order name: Ptt, Activated; Complete Time: 09:26 kb 05/03 08:25 Order name: Urinalysis w/ reflexes; Complete Time: 09:51 kb 05/03 08:52 Order name: Glucose, Ancillary Testing; Complete Time: 08:54 EDMS 05/03 12:20 Order name: CBC with Automated Diff EDMS 05/03 12:20 Order name: CBC with Automated Diff EDMS 05/03 12:20 Order name: Comprehensive Metabolic Panel EDMS 05/03 12:20 Order name: Comprehensive Metabolic Panel EDMS 05/03 12:20 Order name: Magnesium EDMS 05/03 12:20 Order name: Magnesium EDMS 05/03 13:14 Order name: Urinalysis w/ reflexes; Complete Time: 13:36 eb 08 08:25 Order name: Chest Single View XRAY; Complete Time: 08:54 kb 05/03 08:25 Order name: EKG; Complete Time: 08:26 kb 08 12:20 Order name: Patient Safety Orders EDMS 05/03 12:20 Order name: NPO EDMS 05/03 08:25 Order name: Accucheck; Complete Time: 08:40 kb 05/03 08:25 Order name: Cardiac monitoring; Complete Time: 08:36 kb 08 08:25 Order name: EKG - Nurse/Tech; Complete Time: 08:36 kb 05/03 08:25 Order name: IV Saline Lock - Large Bore; Complete Time: 08:36 kb 05/03 08:25 Order name: Labs collected and sent; Complete Time: 09:13 kb 05/03 08:25 Order name: O2 Per Protocol; Complete Time: 08:36 kb 05/03 08:25 Order name: O2 Sat Monitoring; Complete Time: 08:36 kb 05/03 08:25 Order name: Vital Signs; Complete Time: 08:36 kb 05/03 11:06 Order name: Straight Cath - Urine; Complete Time: 11:10 kb 08 11:07 Order name: Vital Signs; Complete Time: 11:24 kb EC:33 Rate is 116 beats/min. Rhythm is regular. QRS [place] is Normal. [place] interval is normal at kb 142 msec. QRS interval is normal at 76 msec. QT interval is normal at 461 msec. Administered Medications: 09:22 Drug: Acetaminophen [place] Suppository 650 mg Route: [place]; ko1 12:00 Follow up: Response: No adverse reaction; Temperature is decreased ko1 09:46 Drug: NS 0.9% IV 1000 ml Route: IV; Rate: 1000 ml; Site: right antecubital; ko1 11:25 Follow up: Response: No adverse reaction; IV Status: Completed infusion; IV Intake: ko1 1000ml 11:30 Follow up: Response: No adverse reaction; IV Status: Completed infusion; IV Intake: ko1 1000ml 09:46 Drug: Rocephin IV 1 grams Route: IV; Rate: calculated rate; Site: right antecubital; ko1 11:24 Follow up: Response: No adverse reaction ko1 12:00 Follow up: Response: No adverse reaction ko1 Disposition: 19:00 Co-signature as Attending Physician, Jase Arriaza MD I reviewed the patient's care rt provided by the Advanced Practice Provider and agree with the diagnosis and treatment plan. Disposition Summary: 05/03/23 11:11 Hospitalization Ordered Hospitalization Status: Inpatient Admission kb Provider: Lincoln Olguin Location: Telemetry/MedSurg (Inpatient) kb Condition: Stable kb Problem: new kb Symptoms: are unchanged kb Bed/Room Type: Standard kb Room Assignment: 211(05/03/23 13:57) eb Diagnosis - Sepsis, unspecified organism kb - UTI/ Urinary tract infection, site not specified kb - Altered mental status, unspecified kb Forms: - Medication Reconciliation Form kb - SBAR form kb Signatures: Dispatcher [employer] EDMS Mildred Pearce, KATHRYN-C [employer]ENT [employer]-Ros Jaeger Kathy, RN RN ko1 Jase Arriaza MD MD rt Corrections: (The following items were deleted from the chart) 09:30 09:20 EMS called to [facility] for possible sepsis. Pt was started on rocephin kb yesterday for possible UTI. Pt has dementia and is normally nonverbal and mostly unresponsive per EMS. kb : 11:23 Respiratory: Respirations even and unlabored. No increased work of breathing. kb Talking in full sentences kb : 11:23 Constitutional: The patient appears well developed, well nourished, kb 11: 10:43 Respiratory: Negative for shortness of breath, cough, wheezing, and pleuritic kb chest pain, kb 11: 10:43 Constitutional: Positive for fever, kb kb 11: 10:43 Cardiovascular: Positive for elevated heart rate, kb kb 11: 10:43 Neuro: Positive for altered mental status, kb kb 11: 10:43 All other systems are negative, kb kb 13:57 11:11 kb eb
--- NOTE | 2023-05-03 11:39 | P.HP ---
Certification for Inpatient Patient admitted to: Inpatient With expected LOS: >2 Midnights Practitioner: I am a practitioner with admitting privileges, knowledge of patient current condition, hospital course, and medical plan of care. Services: Services provided to patient in accordance with Admission requirements found in Title 42 Section 412.3 of the Code of Federal Regulations Patient History Date of Service: 05/03/23 Reason for admission: UTI, Fever, AMS History of Present Illness: 87 yo F, PMH: Alzheimers, Dysphagia, Hypothyroidism, HLD, HTN, IDDM2, Depression, Anxiety, GERD, Osteoarthritis, Vitamin B12 Deficiency Anemia Patient was brought to the ED from [facility] with altered mental status, fever. History limited due to patients mentation. History obtained from ED staff / [employer], and grand-niece at bedside. Per ED staff, patient reportedly had increased heart rate and change in mental status last night. She progressively became less alert / responsive, was noted to have a fever and sent to the ED today. Per grand-niece, patients last hospitalization was here 03/19/22 for UTI, sepsis, AMS. Patient is described as having severe dementia. Over the last weeks/month- months, patient has been speaking less, mumbling more, and wheelchair / bed bound. Grand-niece is uncertain but would say patient is only AOx1 at baseline. Lab work done significant for leukocytosis (15.8). UA positive for Bacteruria, suggesting UTI. She was started on empiric Rocephin on 05/01 at [facility] and they sent a urine culture out. Allergies No Known Allergies Allergy (Verified 12/25/15 09:19) Home Medications: Atorvastatin Calcium [Lipitor*] 20 mg PO BEDTIME 06/09/19 Buspirone HCl [Buspar] 30 mg PO BID 06/09/19 Divalproex Sodium [Depakote] 250 cap PO BID 06/09/19 Donepezil [Aricept*] 10 mg PO BEDTIME 06/09/19 Duloxetine [Cymbalta *] 120 mg PO BEDTIME 06/09/19 Insulin Detemir [Levemir] 18 units SQ DAILY 06/09/19 Levothyroxine [Synthroid*] 75 mcg PO DAILY 06/09/19 Famotidine [Pepcid*] 20 mg PO BEDTIME 03/22/22 Ipratropium/Albuterol Sulfate [Iprat-Albut 0.5-3(2.5) mg/3 ml] 3 ml IH Q6HR PRN 03/22/22 Lisinopril [Zestril] 30 mg PO DAILY 03/22/22 Memantine HCl [Namenda] 10 mg PO BID 03/22/22 Metformin HCl [Glucophage*] 500 mg PO DAILY WITH BREAKFAST 03/22/22 Pregabalin [Lyrica*] 50 mg PO BID 03/22/22 Albuterol Neb [Proventil 0.083% Neb Soln] 2.5 mg NEB [id number] PRN amp 03/26/22 Acetaminophen 650 mg PO DAILY 05/03/23 Calcium Carb/Magnesium Hydrox [[place] Suspension] 30 ml PO Q4H PRN 05/03/23 Insulin -Regular Human [Novolin -R] See Protocol SQ ACHS 05/03/23 Loperamide HCl [Anti-Diarrheal] 2 mg PO Q6H PRN 05/03/23 Pioglitazone HCl 15 mg PO DAILY 05/03/23 Valacyclovir HCl [Valtrex] 1 gm PO DAILY 05/03/23 - Past Medical/Surgical History Diabetic: Yes -: alzheimers -: Dysphagia -: Hypothyroidism -: Hyperlipidemia -: Hypertension -: IDDM2 -: Depression -: Anxiety -: GERD -: Osteoarthiritis -: Vitamin B12 deficiency anemia -: CS 4x -: Hysterectomy -: Gallbladder removal -: Knee - Family History Mother -: Diabetes Father -: Hypertension - Social History Smoking Status: Unknown if ever smoked Alcohol use: No CD- Drugs: No Caffeine use: Yes Place of Residence: [facility] Home Review of Systems is unable to be obtained (unable to fully obtain d/t AMS, Dementia) Physical Examination - Studies Laboratory Data (last 24 hrs) 05/03/23 05/03/23 05/03/23 09:00 09:00 09:00 WBC 15.80 H Hgb 15.0 Hct 46.5 H Plt Count 251 PT 13.4 H INR 1.22 APTT 32.2 Sodium 141 Potassium 3.8 BUN 25 H Creatinine 0.93 Glucose 266 H Total Bilirubin 0.7 AST 12 L ALT 21 Alkaline Phosphatase 75 Assessment and Plan - Advance Directives Does patient have a Living Will: No Does patient have a Durable POA for Healthcare: No - Code Status/Comfort Care Code Status Assessed: Yes Code Status: Full Code Physician Review Additional Text: Physical Exam: GEN: somnolent, opens eyes to voice, laughs when asked a question, mumbles incoherent answer HEENT: Normal conjunctiva, sclera anicteric CV: Regular rate and rhythm, no edema Pulm: Nonlabored respirations on 2L NC ABD: Soft, nontender, nondistended MSK: No joint swelling/redness, no contractions Integumentary: No rashes, no lesions on exposed skin Neuro: somnolent, not participating in exam vitals reviewed Problem List: Sepsis likely secondary to UTI Dysphagia, chronic Generalized weakness Alzheimers Dementia, late onset; severe IDDM2 Hypothyroidism Hyperlipidemia Hypertension Depression/Anxiety GERD Osteoarthritis Vitamin B12 Deficiency Anemia Sepsis likely secondary to UTIj Acute metabolic encephalopathy Previously on Rocephin at [facility] (started 05/01 per report) ED gave rocephin will broaden out / failed therapy UA: +LE, +RBC, +WBC, +Bacteria Urine culture: pending Blood culture: pending Febrile - 101.5, +leukocytosis (15.8) Consult ID Dysphagia Generalized weakness Alzheimers, late onset Dysphagia noted on [facility] records, +normally pureed diet / crushed meds NPO for now until evaluated Bedside swallow once patient is more alert IDDM2 ACHS Accu-Chek, SSI Hypothyroidism Hyperlipidemia Hypertension Depression/Anxiety GERD Osteoarthritis Vitamin B12 Deficiency Anemia Confirm home medications, restart as appropriate VTE: Lovenox Code: DNR - confirmed by daughter (MPOA) Dispo: [place] - [facility] Pending cultures, afebrile > 24 hours, further improvement Time Spent Managing Pts Care (In Minutes): 70
[2023-05-03] MEDS ORDERED: ONDANSETRON 4 MG/2 ML VIAL IV PRN (12:16)
[2023-05-03 13:26] LABS: Specific Gravity 1.023 (1.005-1.030); Urine Bacteria 20-50 /HPF (<20); Urine Bilirubin NEGATIVE (Negative); Urine Blood 2+ (Negative); Urine Clarity Extremely Turbid (Clear); Urine Color Yellow (Yellow); Urine Glucose 1+ (Negative); Urine Mucus Slight /HPF (None Seen); Urine Protein 1+ (Negative); Urine Urobilinogen Normal (Normal); Urine WBC Clump Occasional /HPF (None Seen); Urine pH 5.5 (5.0-7.0)
[2023-05-03] MEDS: Ringers Lactate 1,000 ML IV SCH ×2 (15:15→21:00)
[2023-05-03] MEDS: INSULIN -REGULAR HUMAN 50 UNIT/0.5 ML ML SQ SCH ×2 (16:52→21:09)
[2023-05-03 17:25] VITALS: BMI 37.8
[2023-05-03] MEDS ORDERED: HYDRALAZINE HCL 20 MG/ML VIAL IV PRN (17:43)
[2023-05-03] MEDS ORDERED: Levofloxacin 750mg IV 750 MG/150 ML BAG IV SCH (18:00)
[2023-05-04] MEDS: Ringers Lactate 1,000 ML IV SCH ×4 (00:07→21:00)
[2023-05-04 06:29] LABS: Absolute Lymphocytes (CBC) 3.2 K/uL (0.7-4.9); Lymphocytes % 22.3 % (15.3-44.8); MCV 95.1 fL (80-100); MPV 10.1 fL (7.6-11.3); Platelets 161 thou/uL (152-406)
[2023-05-04 06:53] LABS: Albumin 2.5 g/dL (3.4-5.0); Bilirubin Total 0.6 mg/dL (0.2-1.0); Magnesium 1.4 mg/dL (1.6-2.4); Potassium 3.2 mEq/L (3.5-5.1); Protein, Total 5.7 g/dL (6.4-8.2)
--- NOTE | 2023-05-04 07:11 | P.PN ---
Date of Service: 05/04/23 Subjective: Pt reports pain and not feeling well - unable to elaborate d/t mentation somnolent, +mumbling incoherently, tearful at times Family at bedside afebrile ROS: Difficult to fully obtain d/t mentation, dementia Physical Exam: GEN: somnolent, opens eyes to voice, tearful at times, mumbles incoherent answer HEENT: Normal conjunctiva, sclera anicteric CV: Regular rate and rhythm, no edema Pulm: Nonlabored respirations on 3L NC ABD: Soft, mild suprapubic tenderness Integumentary: No rashes, no lesions Neuro: somnolent, not participating in exam vitals reviewed Problem List: Sepsis likely secondary to UTI Dysphagia, chronic Generalized weakness Alzheimers Dementia, late onset; severe IDDM2 Hypothyroidism Hyperlipidemia Hypertension Depression/Anxiety GERD Osteoarthritis Vitamin B12 Deficiency Anemia Sepsis likely secondary to UTI Acute metabolic encephalopathy Previously on Rocephin at [facility] (started 05/01 per report) ED gave rocephin, changed to levaquin UA: +LE, +RBC, +WBC, +Bacteria Urine culture: pending Blood culture: NGTD ID consulted Continue Levaquin (05/03-) Currently afebrile, +leukocytosis improving PRN pain medications check PVR for possible retention - may benefit from [place] Dysphagia, chronic Generalized weakness Alzheimers Dementia, late onset; severe Dysphagia noted on [facility] records, +normally pureed diet / crushed meds NPO for now until evaluated Bedside swallow once patient is more alert cont IVF IDDM2 ACHS Accu-Chek, SSI Hypothyroidism Hyperlipidemia Hypertension Depression/Anxiety GERD Osteoarthritis Vitamin B12 Deficiency Anemia Confirm home medications, restart as appropriate VTE: Lovenox Code: DNR - confirmed by daughter (JOHANA) Dispo: [place] - [facility] Pending cultures, afebrile > 24 hours, further improvement ss/cm consulted for more info regarding hospice
[2023-05-04] MEDS ORDERED: Magnesium Sulfate 2gm IVPB 2 G/50 ML BAG IV ONE (07:16)
[2023-05-04] MEDS: INSULIN -REGULAR HUMAN 50 UNIT/0.5 ML ML SQ SCH ×4 (07:30→21:22)
[2023-05-04] MEDS: KCL 20 MEQ/100 mL IVPB 20 MEQ/100 ML BAG IV SCH ×2 (08:06→12:23)
[2023-05-04] MEDS: ENOXAPARIN 40 MG/0.4 ML SQ SCH (08:07)
[2023-05-04 08:32] LABS: Blood Morphology Comment NOT SEEN (NOT SEEN); Platelet Estimate ADEQ; White Blood Cell Scan OK (OK)
[2023-05-04] MEDS ORDERED: CEFTRIAXONE 1,000 MG in NA CHLORIDE 0.9% 50 ML IVPB SCH (09:00)
--- NOTE | 2023-05-04 09:27 | P.CNS ---
Date of Consult: 05/04/23 Reason for Consult: UTI, Sepsis Chief Complaint: UTI, Fever, AMS History of Present Illness: Patient is an 87 yo female with a medical history significant for alzheimers, hypothyroidism, hypertension and DM type 2 who presented to the ED from [facility] with complaints of altered mental status and fever. Urinalysis obtained, suggestive of UTI. Urine cultures obtained, pending. Allergies No Known Allergies Allergy (Verified 12/25/15 09:19) Home medications list reviewed: Yes Home Medications: Atorvastatin Calcium [Lipitor*] 20 mg PO BEDTIME 06/09/19 Buspirone HCl [Buspar] 30 mg PO BID 06/09/19 Divalproex Sodium [Depakote] 250 cap PO BID 06/09/19 Donepezil [Aricept*] 10 mg PO BEDTIME 06/09/19 Duloxetine [Cymbalta *] 120 mg PO BEDTIME 06/09/19 Insulin Detemir [Levemir] 18 units SQ DAILY 06/09/19 Levothyroxine [Synthroid*] 75 mcg PO DAILY 06/09/19 Famotidine [Pepcid*] 20 mg PO BEDTIME 03/22/22 Ipratropium/Albuterol Sulfate [Iprat-Albut 0.5-3(2.5) mg/3 ml] 3 ml IH Q6HR PRN 03/22/22 Lisinopril [Zestril] 30 mg PO DAILY 03/22/22 Memantine HCl [Namenda] 10 mg PO BID 03/22/22 Metformin HCl [Glucophage*] 500 mg PO DAILY WITH BREAKFAST 03/22/22 Pregabalin [Lyrica*] 50 mg PO BID 03/22/22 Albuterol Neb [Proventil 0.083% Neb Soln] 2.5 mg NEB [id number] PRN amp 03/26/22 Acetaminophen 650 mg PO DAILY 05/03/23 Calcium Carb/Magnesium Hydrox [[place] Suspension] 30 ml PO Q4H PRN 05/03/23 Insulin -Regular Human [Novolin -R] See Protocol SQ ACHS 05/03/23 Loperamide HCl [Anti-Diarrheal] 2 mg PO Q6H PRN 05/03/23 Pioglitazone HCl 15 mg PO DAILY 05/03/23 Valacyclovir HCl [Valtrex] 1 gm PO DAILY 05/03/23 - Past Medical/Surgical History Diabetic: Yes -: alzheimers -: Dysphagia -: Hypothyroidism -: Hyperlipidemia -: Hypertension -: IDDM2 -: Depression -: Anxiety -: GERD -: Osteoarthiritis -: Vitamin B12 deficiency anemia -: CS 4x -: Hysterectomy -: Gallbladder removal -: Knee - Family History Mother Medical History: Diabetes Father Medical History: Hypertension - Social History Smoking Status: Unknown if ever smoked Alcohol use: No CD- Drugs: No Caffeine use: Yes Place of Residence: [place] Review of Systems is unable to be obtained Physical Examination Temp Pulse Resp BP Pulse Ox 97.2 F 87 18 192/71 H 100 05/04/23 08:00 05/04/23 08:00 05/04/23 08:00 05/04/23 08:00 05/04/23 08:00 General: In no apparent distress, Demented HEENT: Atraumatic Neck: Supple, JVD not distended Respiratory: Diminished (on 3L NC) Cardiovascular: No edema, Regular rate/rhythm Gastrointestinal: Normal bowel sounds, Soft and benign Musculoskeletal: No clubbing Integumentary: No rashes Neurological: Dementia Urinary: Other (PureWick) Laboratory Data - Reviewed Microbiology Data - Reviewed Imagings Data: - Reviewed Conclusions/Impression: Problem List Sepsis Diabetes Mellitus Type II Hypothyroidism Dementia Hyperlipidemia Hypertension Osteoarthritis Anemia, B12 Deficiency Sepsis secondary to Urinary Tract Infection - Urinalysis 05/03: extremely turbid, LE 500, RBC 5-10, WBC >50, Bacteria 20-50 - Urine culture 05/03: Pending - Currently on Levofloxacin IV (started 05/04) - Leukocytosis (WBC 14.3). Afebrile Recommendations Patient was [facility] on [facility]phin at [facility] living without improvement in symptoms. She was started on Levaquin 05/04. We will continue Levaquin for now. Monitor WBC and fever trends. UTI: Continue antibiotic therapy for 5-7 days Follow up with urine culture results and will adjust antibiotic as needed. Case discussed with Dr Chino Davenport
[2023-05-04] MEDS ORDERED: METOPROLOL TARTRATE 5 MG/5 ML INJ IV PRN (10:11)
[2023-05-04] MEDS: ACETAMINOPHEN 500 MG TAB PO PRN (16:15)
[2023-05-04] MEDS: Levofloxacin 750mg IV 750 MG/150 ML BAG IV SCH (18:07)
[2023-05-05] MEDS: Ringers Lactate 1,000 ML IV SCH ×2 (06:32→14:20)
[2023-05-05] MEDS: INSULIN -REGULAR HUMAN 50 UNIT/0.5 ML ML SQ SCH ×4 (07:30→20:19)
[2023-05-05] MEDS: ENOXAPARIN 40 MG/0.4 ML SQ SCH (07:58)
[2023-05-05 08:52] VITALS: O2SAT 97
--- NOTE | 2023-05-05 09:53 | P.PN ---
Date of Service: 05/05/23 Chief Complaint: UTI, Fever, AMS Subjective: Patient seen and examined at bedside. ROS unable to obtain as patient is confused/dementia. Daughter at bedside. No acute events reported overnight. Physical Examination Temp Pulse Resp BP Pulse Ox 96.8 F 68 17 129/64 95 05/05/23 08:00 05/05/23 08:00 05/05/23 08:00 05/05/23 08:00 05/05/23 08:00 General: In no apparent distress, Demented HEENT: Atraumatic, normocephalic. Poor dentition. Neck: Supple, JVD not distended Respiratory: Diminished breath sounds. Nonlabored respirations on room air. Cardiovascular: No edema, Regular rate/rhythm Gastrointestinal: Normal bowel sounds, Soft and benign Musculoskeletal: No clubbing, no cyanosis. Integumentary: No rashes Neurological: Dementia Urinary: PureWick Laboratory Data - Reviewed Microbiology Data - Reviewed Imagings Data: - Reviewed Medication list: reviewed Assessment and Plan Problem List Sepsis Diabetes Mellitus Type II Hypothyroidism Dementia Hyperlipidemia Hypertension Osteoarthritis Anemia, B12 Deficiency Sepsis secondary to Urinary Tract Infection - Patient was reportedly started on Rocephin at assisted without improvement in symptoms. - Urinalysis 05/03: extremely turbid, LE 500, RBC 5-10, WBC >50, Bacteria 20-50 - Urine culture 05/03: 2+ gram negative rods - Currently on Levofloxacin IV (started 05/04) - Leukocytosis slightly improving. Afebrile - Blood cultures 01/31: No growth to date Recommendations UTI: Continue Levofloxacin for 5-7 days (started 05/04) Will Follow up with final urine culture results and adjust antibiotic as needed. Monitor WBC and fever trends. Case discussed with Dr Chino Davenport
[2023-05-05] MEDS: ACETAMINOPHEN 500 MG TAB PO PRN (11:31)
[2023-05-05] MEDS: Levofloxacin 750mg IV 750 MG/150 ML BAG IV SCH (17:54)
--- NOTE | 2023-05-05 18:14 | P.PN ---
Subjective Date of Service: 05/05/23 Chief Complaint: UTI, Fever, AMS Patient has advanced dementia and cannot provide any history. She is more awake today. Patient finished his breakfast this morning. No fever since admission. Physical Examination - Vital Signs Temperature: 97.0 F Blood Pressure: 145/80 Pulse: 71 Respirations: 17 Pulse Ox (%): 95 Assessment And Plan - Plan Physical Exam: GEN: Awake, demented, oriented x1. HEENT: Normal conjunctiva, sclera anicteric CV: Regular rate and rhythm, no edema Pulm: Clear to auscultation bilaterally. ABD: Soft, no tenderness, no distention. Integumentary: No rashes, no lesions Neuro: No focal motor deficit vitals reviewed Problem List: Sepsis likely secondary to UTI Dysphagia, chronic Generalized weakness Alzheimers Dementia, late onset; severe IDDM2 Hypothyroidism Hyperlipidemia Hypertension Depression/Anxiety GERD Osteoarthritis Vitamin B12 Deficiency Anemia Sepsis likely secondary to UTI Acute metabolic encephalopathy Previously on Rocephin at [facility] (started 05/01 per report) ED gave rocephin, changed to levaquin UA: +LE, +RBC, +WBC, +Bacteria Urine culture: 10,000 to 100,000 growth. Organism ID and sensitivities pending. Blood culture: NGTD ID is following. Continue Levaquin (05/03-) PRN pain medications Dysphagia, chronic Generalized weakness Alzheimers Dementia, late onset; severe Dysphagia noted on [place] records, +normally pureed diet / crushed meds Patient is tolerating diet when fed with assistance. cont IVF IDDM2 ACHS Accu-Chek, SSI Hypothyroidism Hyperlipidemia Hypertension Depression/Anxiety GERD Osteoarthritis Vitamin B12 Deficiency Anemia Continue home medications. VTE: Lovenox Code: DNR - confirmed by daughter (MPOA) Dispo: [place] - [facility] ss/cm consulted to evaluate for hospice placement.
[2023-05-05] MEDS ORDERED: HOME MED 1 EA UNK (Ipratropium/Albuterol Sulfate [Iprat-Albut 0.5-3(2.5) Mg/3 Ml] 3 ML Amp IH PRN (18:24)
[2023-05-05] MEDS ORDERED: CALCIUM CARBONATE PO PRN (18:24)
[2023-05-05] MEDS ORDERED: [UNRECOGNIZED DRUG - OTHER] PO PRN (18:24)
[2023-05-05] MEDS ORDERED: MAGNESIUM HYDROXIDE PO PRN (18:24)
[2023-05-05] MEDS ORDERED: ALBUTEROL 2.5 MG/3 ML NEB SOL IH PRN (19:15)
[2023-05-05] MEDS ORDERED: IPRATROPIUM BROM 0.5MG/2.5ML IH PRN (19:15)
[2023-05-05] MEDS: ATORVASTATIN 20 MG TAB PO SCH (20:19)
[2023-05-05] MEDS: FAMOTIDINE 20 MG TAB PO SCH (20:19)
[2023-05-05] MEDS: DONEPEZIL HCL 5 MG TAB PO SCH (20:19)
[2023-05-05] MEDS: MEMANTINE HCL 10 MG TABLET PO SCH (20:19)
[2023-05-05] MEDS ORDERED: HOME MED 1 EA UNK (Divalproex Sodium [Depakote] 125 MG Tablet.Dr) PO SCH (21:00)
[2023-05-05] MEDS: DIVALPROEX DR 250 MG TAB PO SCH (21:00)
[2023-05-05] MEDS: DULOXETINE 30 MG CAP PO SCH (21:00)
[2023-05-05] MEDS ORDERED: HALOPERIDOL LACT 5 MG/ML INJ IV ONE (21:56)
[2023-05-05] MEDS ORDERED: HALOPERIDOL LACT 5 MG/ML INJ ONE (22:09)
[2023-05-06] MEDS ORDERED: LEVOTHYROXINE SOD 0.075 MG TAB PO SCH (06:30)
[2023-05-06] MEDS ORDERED: INSULIN GLARGINE 100 UNIT/ML SQ SCH (09:00)
[2023-05-06] MEDS ORDERED: HOME MED 1 EA UNK (Insulin Detemir [Levemir] 100 UNIT/1 ML Ml) SQ SCH (09:00)
[2023-05-06] MEDS ORDERED: lisinopriL 10 MG TAB PO SCH (09:00)
[2023-05-06] MEDS ORDERED: HOME MED 1 EA UNK (Lisinopril [Zestril] 30 MG Tablet) PO SCH (09:00)
[2023-05-06] MEDS: ENOXAPARIN 40 MG/0.4 ML SQ SCH (09:06)
[2023-05-06 09:13] LABS: Absolute Lymphocytes (CBC) 2.7 K/uL (0.7-4.9); Hematocrit 42.2 % (36.0-45.0); Lymphocytes % 29.2 % (15.3-44.8); MCV 94.8 fL (80-100); MPV 10.3 fL (7.6-11.3); Platelets 127 thou/uL (152-406); RBC Red Blood Cell Count 4.45 M/uL (3.86-4.86)
[2023-05-06] MEDS: DIVALPROEX DR 250 MG TAB PO SCH ×2 (09:13→20:03)
[2023-05-06] MEDS: MEMANTINE HCL 10 MG TABLET PO SCH ×2 (09:13→20:03)
--- NOTE | 2023-05-06 09:18 | P.PN ---
Date of Service: 05/06/23 Chief Complaint: UTI, Fever, AMS Subjective: Patient seen and examined at bedside. Overall improving. Family member at bedside. Patient is awake, confused. Physical Examination Temp Pulse Resp BP Pulse Ox 97.1 F 86 17 124/76 97 05/06/23 04:00 05/06/23 09:07 05/06/23 04:00 05/06/23 09:07 05/06/23 04:00 General: In no apparent distress, Demented HEENT: Atraumatic, normocephalic. Poor dentition. Neck: Supple, JVD not distended Respiratory: Diminished breath sounds. Nonlabored respirations on room air. Cardiovascular: No edema, Regular rate/rhythm Gastrointestinal: Normal bowel sounds, Soft and benign Musculoskeletal: No clubbing, no cyanosis. Integumentary: No rashes Neurological: Dementia Urinary: PureWick Laboratory Data - Reviewed Microbiology Data - Reviewed Imagings Data: - Reviewed Medication list: reviewed Assessment and Plan Problem List Sepsis Acute Cystitis Diabetes Mellitus Type II Hypothyroidism Dementia Hyperlipidemia Hypertension Osteoarthritis Anemia, B12 Deficiency Sepsis secondary to Acute Cystitis - Patient was reportedly started on Rocephin at long-term without improvement in symptoms. - Urinalysis 05/03: extremely turbid, LE 500, RBC 5-10, WBC >50, Bacteria 20-50 - Urine culture 05/03: Escherichia coli ESBL - Currently on Levofloxacin IV (started 05/04) - Leukocytosis resolved. Afebrile - Blood cultures 01/31: No growth to date Recommendations - Urine culture resulting with E.coli ESBL, resistant to levofloxacin. --> Discontinue Levofloxacin and start on Meropenem or Ertapenem IV. Continue for 5 days. - Monitor WBC and fever trends. - Pressure offloading measures. Turn patient Q2H - Supplemental nutrition Case discussed with Dr Chino Davenport
[2023-05-06] MEDS: INSULIN -REGULAR HUMAN 50 UNIT/0.5 ML ML SQ SCH ×4 (09:27→20:12)
[2023-05-06 09:32] LABS: Blood Morphology Comment NOT SEEN (NOT SEEN); Platelet Estimate DECR; Potassium 3.6 mEq/L (3.5-5.1); White Blood Cell Scan OK (OK)
[2023-05-06] MEDS ORDERED: ERTAPENEM SODIUM 1 GM VIAL IVPB SCH (12:00)
[2023-05-06] MEDS ORDERED: ERTAPENEM NA 1 GM in NA CHLORIDE 0.9% 100 ML IVPB SCH (13:00)
--- NOTE | 2023-05-06 14:38 | P.DS ---
Admission Date: 05/03/23 Discharge Date: 05/06/23 Disposition: TRANSFER TO [facility] Discharge Condition: FAIR Reason for Admission: UTI, Fever, AMS Brief History of Present Illness: 87 yo F, PMH: Alzheimers, Dysphagia, Hypothyroidism, HLD, HTN, IDDM2, Depression, Anxiety, GERD, Osteoarthritis, Vitamin B12 Deficiency Anemia Patient was brought to the ED from [place] with altered mental status, fever. History limited due to patients mentation. History obtained from ED staff / [employer] SYSTEM[employer] ADMINISTRATOR, and grand-niece at bedside. Per ED staff, patient reportedly had increased heart rate and change in mental status. She progressively became less responsive, was noted to have a fever and sent to the ED today. Per grand-niece, patients last hospitalization was here 03/19/22 for UTI, sepsis, AMS. Family reports history of advanced dementia and over the last weeks/month- months, patient has been speaking less, mumbling more, and she is bed bound. She was started on empiric Rocephin on 05/01 at [place]. Lab work done significant for leukocytosis (15.8). UA positive for Bacteruria, suggesting UTI. Patient was admitted for further management. Hospital Course: Diagnosis Sepsis likely secondary to UTI Dysphagia, chronic Generalized weakness Alzheimers Dementia, late onset; severe IDDM2 Hypothyroidism Hyperlipidemia Hypertension Depression/Anxiety GERD Osteoarthritis Vitamin B12 Deficiency Anemia Sepsis likely secondary to UTI Acute metabolic encephalopathy Previously on Rocephin at [facility] (started 05/01 per report) Patient treated with Levaquin Urine culture grew ESBL E. coli. Blood culture: NGTD Infectious disease consulted who assisted with management. Patient has been clinically stable. She is discharged with Invanz to complete 7 days of treatment Dysphagia, chronic Generalized weakness Alzheimers Dementia, late onset; severe Dysphagia noted on [place] records, patient has been on pureed diet / crushed meds Patient tolerated and finished her meals when fed with assistance. IDDM2 ACHS Accu-Chek, SSI Hypothyroidism Hyperlipidemia Hypertension Depression/Anxiety GERD Osteoarthritis Vitamin B12 Deficiency Anemia Continued home medications. Vital Signs/Physical Exam: Temp Pulse Resp BP Pulse Ox 97.1 F 84 16 147/83 H 96 05/06/23 12:00 05/06/23 12:00 05/06/23 12:00 05/06/23 12:00 05/06/23 12:00 General: In no apparent distress, Other (Awake) HEENT: Mucous membr. moist/pink Neck: Supple, JVD not distended Respiratory: Clear to auscultation bilaterally Cardiovascular: Regular rate/rhythm, Normal S1 S2 Gastrointestinal: Normal bowel sounds, Soft and benign, Non-distended Musculoskeletal: No swelling Laboratory Data at Discharge: WBC 9.30 thou/uL (4.3-10.9) 05/06/23 08:56 Hgb 13.6 g/dL (12.0-15.0) 05/06/23 08:56 Hct 42.2 % (36.0-45.0) 05/06/23 08:56 Plt Count 127 thou/uL (152-406) L 05/06/23 08:56 PT 13.4 SECONDS (9.5-12.5) H 05/03/23 09:00 INR 1.22 05/03/23 09:00 APTT 32.2 SECONDS (24.3-36.9) 05/03/23 09:00 Sodium 137 mEq/L (136-145) 05/06/23 08:56 Potassium 3.6 mEq/L (3.5-5.1) 05/06/23 08:56 BUN 13 mg/dL (7-18) 05/06/23 08:56 Creatinine 0.47 mg/dL (0.55-1.02) L 05/06/23 08:56 Glucose 206 mg/dL (74-106) H 05/06/23 08:56 Magnesium 2.1 mg/dL (1.6-2.4) 05/04/23 13:38 Total Bilirubin 0.6 mg/dL (0.2-1.0) 05/04/23 06:11 AST 9 U/L (15-37) L 05/04/23 06:11 ALT 14 U/L (13-56) 05/04/23 06:11 Alkaline Phosphatase 55 U/L (45-117) D 05/04/23 06:11 Home Medications: Atorvastatin Calcium [Lipitor*] 20 mg PO BEDTIME 06/09/19 Divalproex Sodium [Depakote] 250 cap PO BID 06/09/19 Donepezil [Aricept*] 10 mg PO BEDTIME 06/09/19 Duloxetine [Cymbalta *] 120 mg PO BEDTIME 06/09/19 Insulin Detemir [Levemir] 18 units SQ DAILY 06/09/19 Levothyroxine [Synthroid*] 75 mcg PO DAILY 06/09/19 Famotidine [Pepcid*] 20 mg PO BEDTIME 03/22/22 Ipratropium/Albuterol Sulfate [Iprat-Albut 0.5-3(2.5) mg/3 ml] 3 ml IH Q6HR PRN 03/22/22 Lisinopril [Zestril] 30 mg PO DAILY 03/22/22 Memantine HCl [Namenda] 10 mg PO BID 03/22/22 Metformin HCl [Glucophage*] 500 mg PO DAILY WITH BREAKFAST 03/22/22 Pregabalin [Lyrica*] 50 mg PO BID 03/22/22 Acetaminophen 650 mg PO DAILY 05/03/23 Calcium Carb/Magnesium Hydrox [[place] Suspension] 30 ml PO Q4H PRN 05/03/23 Insulin -Regular Human [Novolin -R] See Protocol SQ ACHS 05/03/23 Pioglitazone HCl 15 mg PO DAILY 05/03/23 Valacyclovir HCl [Valtrex] 1 gm PO DAILY 05/03/23 Diet: ADA Activity: Fall precautions Followup: NONE,NONE [Primary Care Provider] - 1-2 Weeks Time spent managing pt's care (in minutes): 33
--- NOTE | 2023-05-06 18:18 | EKG ---
Test Date: 2023-05-03 Test Time: 08:30:24 Structural Rigger: MAYUR MEASUREMENT RESULTS: Intervals: Rate: 116 ME: 142 QRSD: 76 QT: 332 QTc: 461 [place]: P: 35 ME: 142 QRS: -10 T: 47 INTERPRETIVE STATEMENTS: Sinus tachycardia Otherwise normal ECG Compared to ECG 03/21/2022 13:28:11 Sinus rhythm no longer present Electronically Signed On 05-06-23 18:13:26 CDT by Abdirizak Ford
[2023-05-06] MEDS: FAMOTIDINE 20 MG TAB PO SCH (20:03)
[2023-05-06] MEDS: ATORVASTATIN 20 MG TAB PO SCH (20:03)
[2023-05-06] MEDS: DULOXETINE 30 MG CAP PO SCH (20:03)
[2023-05-06] MEDS: DONEPEZIL HCL 5 MG TAB PO SCH (20:03)
[2023-05-06 22:07] VITALS: BP 116/52; TEMP 97.2
== END 2023-05-06 22:08 | DRG 871 ==
LOC: ER 08:20 → ERHOLD 13:09 → 2ND 14:32
PROVIDERS: ADMIT Hospitalist; ATTEND Internal Medicine
DX: A41.51 Sepsis due to Escherichia coli [E. coli] (principal); G93.41 Metabolic encephalopathy; N39.0 Urinary tract infection, site not specified; F02.C4 Dementia in other diseases classified elsewhere, severe, with anxiety; F02.C3 Dementia in other diseases classified elsewhere, severe, with mood disturbance; Z16.12 Extended spectrum beta lactamase (ESBL) resistance; Z16.29 Resistance to other single specified antibiotic; E03.9 Hypothyroidism, unspecified; E78.5 Hyperlipidemia, unspecified; I10 Essential (primary) hypertension; D51.9 Vitamin B12 deficiency anemia, unspecified; K21.9 Gastro-esophageal reflux disease without esophagitis; M19.90 Unspecified osteoarthritis, unspecified site; G30.1 Alzheimer's disease with late onset; Z66 Do not resuscitate; Z74.01 Bed confinement status; Z79.4 Long term (current) use of insulin; Z79.890 Hormone replacement therapy; Z79.899 Other long term (current) drug therapy; Z90.710 Acquired absence of both cervix and uterus
CPT/HCPCS: 36415; 71045; 80048; 80053; 81001; 82947; 83605; 83735; 85025; 85610; 85730; 87040; 87077; 87086; 87088; 87186; 92526; 92610; 93005; 96361; 96374; 99285; J0360; J0696; J1335; J1630; J1650; J1815; J3475; J3480; J7030; J7120